=== PATIENT | female | born 1935 | race Caucasian/White ===

== ENCOUNTER 2017-03-30 10:28 | Emergency (ER) | payer OTHER ==
[~2017-03-30 10:28] MED LIST: ACET-1487 PO; ASPI81TA28 PO; HYDR-5688 PO; IMDSR60 PO; INSUINJ4 SC; LPT/20 PO; LSX40 PO; MAGN400T6 PO; MELA1CAP9 PO; NRV5 PO; PRT/40 PO; TPRSR25 PO
[2017-03-30] MEDS ORDERED: INSDGIPEN SC (11:25)
[2017-03-30] MEDS ORDERED: NRV/10 PO (11:25)
[2017-03-30] MEDS ORDERED: SERT-234 PO (11:26)
[2017-03-30] MEDS ORDERED: HYDR-4331 PO (11:26)
[2017-03-30] MEDS ORDERED: LACTATED RINGER'S 1000ML 1,000 ML IV SCH (11:31)
--- NOTE | 2017-03-30 11:38 | EMERGENCY ROOM VISIT NOTE ---
History Report prepared by Paulina: Johanny Trejo Under the Supervision of: Dr. Aubndio Mukherjee M.D. First contact with patient: 11:21 Chief Complaint: HIP PAIN Stated Complaint: FALL/HIP PAIN History of Present Illness The patient is an 81 year old female who presents to the Emergency Room with complaints of a sudden fall that occurred just prior to arrival. She currently rates her discomfort as a 5/10 in severity. The patient states that she was being transferred from her bed to her wheelchair when she fell, hitting the right side of her head and her right hip. She states that she has chronic right hip pain, noting that she has a bad hip. The patient states that her hip pain today is worsened due to the fall. She states that she takes 81 mg of aspirin daily. Per EMS the patient was given Fentanyl for her pain which alleviated her pain. The patient denies any headache, fever, neck pain, extremity pain, abdominal pain, back pain, vomiting, or urinary symptoms. She states that she does not ambulate, noting that she only transfers from bed to wheelchair. The patients tetanus is current. Source of History: patient Onset: prior to arrival Position: other (global) Symptom Intensity: 5/10 Quality: other (fall) Timing: other (sudden) Associated Symptoms: No fevers, No headache, No neck pain, No vomiting, No abdominal pain, No back pain, No urinary symptoms Note: Associated Symptoms: right hip pain Review of Systems See HPI for pertinent positives & negatives. A total of 10 systems reviewed and were otherwise negative. Past Medical & Surgical Medical Problems: (1) Acute GI bleeding (2) Benign hypertension (3) Cerebrovascular disease (4) Chronic kidney disease stage 3 (5) Coronary artery disease (6) CVA (cerebral vascular accident) (7) Depressive disorder (8) Diabetes mellitus type 2 (9) Diabetic foot ulcer (10) Dyslipidemia (11) Gastroesophageal reflux disease (12) Hypertension (13) Myocardial infarct (14) Osteoarthritis (15) Osteoporosis (16) Peripheral vascular disease Surgical Problems: (1) Coronary artery bypass grafting (2) History of appendectomy (3) Status post cholecystectomy (4) Tonsillectomy Family History Diabetes mellitus Heart disease Hypertension Social History Smoking Status: Never Smoker Alcohol Use: none Drug Use: none Marital Status: Housing Status: lives with family Occupation Status: unemployed Current/Historical Medications Scheduled Amlodipine Besylate (Amlodipine Besylate), 10 MG PO DAILY Aspirin (Aspirin Ec), 81 MG PO DAILY Atorvastatin (Atorvastatin Calcium), 20 MG PO HS Furosemide (Furosemide), 40 MG PO QAM Insulin Glargine (Lantus Solostar), 25 UNITS SC DAILY Isosorbide Mononitrate (Isosorbide Mononitrate ER), 60 MG PO QAM Magnesium Oxide (Mag-Ox), 400 MG PO BIDM Metoprolol Succinate (Metoprolol Succinate ER), 25 MG PO QAM Pantoprazole (Pantoprazole Sodium), 40 MG PO DAILY Sertraline (Zoloft), 100 MG PO DAILY Scheduled PRN Hydrocodone-Acetaminophen (Lortab 7.5-325 mg), 1 TAB PO Q6 PRN for Pain Melatonin (Melatonin), 10 MG PO HS PRN for Sleep Allergies Coded Allergies: Cephalexin (Verified Allergy, Intermediate, Hives, 04/27/16) Propofol (Verified Allergy, Mild, RASH, 04/27/16) Gabapentin (Verified Adverse Reaction, Intermediate, vertigo, 04/27/16) Levofloxacin (Verified Adverse Reaction, Mild, nausea, 04/27/16) Promethazine (Verified Adverse Reaction, Mild, CONFUSION, 04/27/16) TATIANNA Inhibitors (Verified Adverse Reaction, Unknown, Cough, 04/27/16) Physical Exam Vital Signs Date Time Temp Pulse Resp B/P (MAP) Pulse Ox O2 Delivery O2 Flow Rate FiO2 03/30/17 14:15 36.6 51 18 189/86 91 03/30/17 13:01 174/74 03/30/17 12:58 50 03/30/17 12:50 186/87 03/30/17 10:42 36.6 68 18 180/63 94 Room Air Physical Exam GENERAL: Patient is in no acute distress. HEENT: Abrasion to the right frontal parietal scalp, no mookie stepoff to suggest fracture, mucous membranes dry, no other facial trauma noted. NECK: No stridor, no adenopathy, no meningismus, trachea is midline. Nontender posterior c-spine. LUNGS: Clear to auscultation bilaterally, no wheeze, no rhonchi, breath sounds equal. HEART: Without murmurs gallops or rubs, regular rate and rhythm. ABDOMEN: Soft, nontender, bowel sounds positive, no hernias, no peritonitis. EXTREMITIES: Right lower extremity is externally rotated and shortened, there is pain to palpate the right lateral hip. No right knee effusion, no focal mookie discomfort around the knee. NEUROLOGIC: Oriented x 3, no acute motor or sensory deficits, no focal weakness. SKIN: No rash, no jaundice, no diaphoresis. Medical Decision & Procedures ER Provider Diagnostic Interpretation: Radiology results as stated below per my review and radiologist interpretation: CT OF THE HEAD WITHOUT CONTRAST CLINICAL HISTORY: Fall with head injury. COMPARISON STUDY: Head CT March 06, 2015 and MRI of the brain March 07, 2015. CT DOSE: 709.48 mGy.cm TECHNIQUE: Helical axial images of the head were obtained without IV contrast. Automated exposure control was utilized for the study. A dose lowering technique was utilized adhering to the principles of ALARA. FINDINGS: No acute intracranial hemorrhage, midline shift or mass effect is present. Ventricular system is stable. Basilar cisterns are patent. There are no extra-axial collections. An old right frontoparietal infarct is noted as well as an old left parietal infarct. White matter hypodensity suggests small vessel disease. There is an old infarct within the anterior left frontal lobe as well. There is no calvarial fracture. IMPRESSION: 1. No acute intracranial findings. 2. No calvarial fracture. 3. Multiple old infarcts, as described above. Electronically signed by: Pancho Brice M.D. 03/30/2017 12:37 PM Dictated Date/Time: 03/30/2017 12:28 PM R KNEE 1 OR 2 VIEWS ROUTINE CLINICAL HISTORY: Right knee pain following fall. COMPARISON: None FINDINGS: Alignment of the right knee is anatomic. There is no joint effusion or fracture. There are soft tissue calcifications which are chronic. Extensive vascular calcification is present. Osteopenia is noted. There is minimal lateral compartment joint space narrowing. Patellar spurring is noted. IMPRESSION: No acute fracture or joint effusion of the right knee. Electronically signed by: Pancho Brice M.D. 03/30/2017 1:17 PM Dictated Date/Time: 03/30/2017 1:01 PM R PELVIS/UNILATERAL HIP 2-3VIEWS CLINICAL HISTORY: 81 years-old Female presenting with pain, fall. TECHNIQUE: Single frontal view of the pelvis and frontal and frog-leg lateral views of the right hip were obtained. COMPARISON: 07/08/2013. FINDINGS: Significant interval worsening of severe degenerative changes of the right hip are reviewed deformation of the right humeral head now apparent. Complete joint space loss superiorly with subchondral sclerosis and cystic change both in the femoral head and in the acetabulum. The left hip is grossly normal. No evidence of acute hip fracture. Suggestion of periosteal reaction along the superior pubic rami, which may suggest prior injury. Osteopenia suggested area allowing for this, no gross evidence of pelvic fracture. Mild degenerative changes of the lower lumbar spine noted. Atherosclerosis. Multiple pelvic phleboliths. Mild stool burden. IMPRESSION: 1. No acute osseous injury of the pelvis or right hip. 2. Significant interval worsening of now severe degenerative changes of the right hip as described above. Electronically signed by: Dino Enriquez M.D. 03/30/2017 1:15 PM Dictated Date/Time: 03/30/2017 1:12 PM R FEMUR 2 VIEWS ROUTINE CLINICAL HISTORY: Fall. Right thigh pain. COMPARISON: CT of the abdomen and pelvis February 14, 2016 and right hip radiographs July 08, 2013. FINDINGS: No acute fracture within the right femur is identified. There is no right knee joint effusion. Note is made of near complete loss of the right hip joint space with osteophytosis and flattening of the femoral head. There is extensive vascular calcification. IMPRESSION: 1. No acute fracture of the right femur. 2. End-stage osteoarthritis of the right hip with flattening of the femoral head. Electronically signed by: Pancho Brice M.D. 03/30/2017 1:01 PM Dictated Date/Time: 03/30/2017 12:59 PM CHEST ONE VIEW PORTABLE CLINICAL HISTORY: 81 years-old Female presenting with hip pain. TECHNIQUE: Portable semiupright AP view of the chest was obtained. COMPARISON: 02/18/2016. FINDINGS: Image quality is degraded by suboptimal positioning. Median sternotomy wires intact. Cardiac silhouette top normal in size. Bibasilar hazy opacities may still be present. Allowing for patient body habitus and positioning, no gross evidence of new infiltrate. No large effusion or pneumothorax. Osseous structures within normal limits. No convincing evidence of pneumoperitoneum. The radiolucency over the upper abdomen is likely due to positioning. IMPRESSION: 1. Bibasilar atelectasis or scarring, unchanged. Degraded image quality. Electronically signed by: Dino Enriquez M.D. 03/30/2017 1:18 PM Dictated Date/Time: 03/30/2017 1:16 PM Laboratory Results 03/30/17 11:41 Red Blood Count 4.34, Mean Corpuscular Volume 87.1, Mean Corpuscular Hemoglobin 28.6, Mean Corpuscular Hemoglobin Concent 32.8, Mean Platelet Volume 10.5, Neutrophils (%) (Auto) 61.3, Lymphocytes (%) (Auto) 29.9, Monocytes (%) (Auto) 6.9, Eosinophils (%) (Auto) 1.1, Basophils (%) (Auto) 0.5, Neutrophils # (Auto) 6.63, Lymphocytes # (Auto) 3.23, Monocytes # (Auto) 0.74, Eosinophils # (Auto) 0.12, Basophils # (Auto) 0.05 03/30/17 11:41 Test 03/30/17 11:41 White Blood Count 10.80 K/uL (4.8-10.8) Red Blood Count 4.34 M/uL (4.2-5.4) Hemoglobin 12.4 g/dL (12.0-16.0) Hematocrit 37.8 % (37-47) Mean Corpuscular Volume 87.1 fL (80-100) Mean Corpuscular Hemoglobin 28.6 pg (25-34) Mean Corpuscular Hemoglobin Concent 32.8 g/dl (32-36) Platelet Count 231 K/uL (130-400) Mean Platelet Volume 10.5 fL (7.4-10.4) Neutrophils (%) (Auto) 61.3 % Lymphocytes (%) (Auto) 29.9 % Monocytes (%) (Auto) 6.9 % Eosinophils (%) (Auto) 1.1 % Basophils (%) (Auto) 0.5 % Neutrophils # (Auto) 6.63 K/uL (1.4-6.5) Lymphocytes # (Auto) 3.23 K/uL (1.2-3.4) Monocytes # (Auto) 0.74 K/uL (0.11-0.59) Eosinophils # (Auto) 0.12 K/uL (0-0.5) Basophils # (Auto) 0.05 K/uL (0-0.2) RDW Standard Deviation 45.0 fL (36.4-46.3) RDW Coefficient of Variation 14.1 % (11.5-14.5) Immature Granulocyte % (Auto) 0.3 % Immature Granulocyte # (Auto) 0.03 K/uL (0.00-0.02) Prothrombin Time 10.7 SECONDS (9.0-12.0) Prothromb Time International Ratio 1.0 (0.9-1.1) Activated Partial Thromboplast Time 26.6 SECONDS (21.0-31.0) Partial Thromboplastin Ratio 1.0 Anion Gap 9.0 mmol/L (3-11) Estimated GFR () 28.2 Estimated GFR (Non- 24.3 BUN/Creatinine Ratio 21.5 (10-20) Calcium Level 8.7 mg/dl (8.5-10.1) Laboratory results reviewed by me. Medications Administered Medications (Trade) Dose Ordered Sig/Frederick Route Start Time Stop Time Status Last Admin Dose Admin Lactated Ringer's 1,000 ml @ 150 mls/hr Q6H40M IV 03/30/17 11:31 04/29/17 11:30 03/30/17 11:31 150 MLS/HR Fentanyl Citrate (Fentanyl Inj) 50 mcg Q15M PRN IV 03/30/17 11:45 04/13/17 11:44 03/30/17 12:04 50 MCG ECG Indication: other (fall) Rate (beats per minute): 54 Rhythm: sinus bradycardia Findings: no acute ischemic change, no ectopy, other (T wave flattening inferior and lateral) ED Course 1126: The patient was evaluated in room C9. A complete history and physical exam was performed. 1131: Ordered Lactated Ringer's 1000 ml @ 150 mls/hr IV. 1145: Ordered Fentanyl Inj 50 mcg IV. 1330: I reevaluated the patient and she is doing well. I discussed the exam findings with her and her family and I discussed the treatment plan. They verbalized complete understanding and agreement. The patient is ready to go home. Medical Decision The patient is an 81 year old female who presents to the ED with complaints of a fall. Differential diagnoses considered include Intracranial bleeding or skull fracture, hip contusion or hip fracture, pelvic fracture, femur or knee fracture. There is no leukocytosis or anemia. No significant electrolyte abnormality. There was renal insufficiency but this appeared baseline looking back at previous testing. No coagulopathy. EKG shows a sinus rhythm, no acute ischemia. Brain CT shows no acute bleed or mass effect. Chest film does not show pneumonia or CHF. Pelvis and right hip films show no fractures. Arthritis was seen in the area of the right hip. The right femur and right knee films show no acute fractures. Patient received IV hydration, she received IV fentanyl for pain control. The patient has suffered some head trauma and a contusion to the right hip from her fall. She was reassured by her testing. She is being discharged home. Medication Reconcilliation Current Medication List: was personally reviewed by me Blood Pressure Screening Patient's blood pressure: Elevated blood pressure Blood pressure disposition: Referred to PCP Impression Primary Impression: Head trauma Additional Impressions: Fall Right hip pain Scribe Attestation The scribe's documentation has been prepared under my direction and personally reviewed by me in its entirety. I confirm that the note above accurately reflects all work, treatment, procedures, and medical decision making performed by me. Departure Information Dispostion Home / Self-Care Referrals Esther Hobson D.O. (PCP) Forms HOME CARE DOCUMENTATION FORM, IMPORTANT VISIT INFORMATION Patient Instructions [facility] Additional Instructions ice to the sore areas pain control as before at home no fractures today by our testing brain CT scan was ok today Problem Qualifiers
[2017-03-30] MEDS ORDERED: FENTANYL CITRATE INJ 50 MCG/1 ML 2 ML VIAL IV PRN (11:45)
[2017-03-30 12:01] LABS: BASO % 0.5 %; BASO ABS # 0.05 K/uL (0-0.2); COMPLETE YES; EOS % 1.1 %; HEMATOCRIT 37.8 % (37-47); IG% 0.3 %; LYMPH % 29.9 %; LYMPH ABS # 3.23 K/uL (1.2-3.4); MEAN CELL VOLUME 87.1 fL (80-100); MEAN CORPUSCULAR HEMOGLOBIN 28.6 pg (25-34); MEAN CORPUSCULAR HGB CONC 32.8 g/dl (32-36); MEAN PLATELET VOLUME 10.5 fL (7.4-10.4); MONO % 6.9 %; NEUT % 61.3 %; PLATELET COUNT 231 K/uL (130-400); RED BLOOD COUNT 4.34 M/uL (4.2-5.4)
[2017-03-30 12:09] LABS: PROTHROMBIN TIME (PATIENT) 10.7 SECONDS (9.0-12.0)
[2017-03-30 12:22] LABS: BLOOD UREA NITROGEN 41 mg/dl (7-18); BUN/CREATININE RATIO 21.5 (10-20); CALCIUM 8.7 mg/dl (8.5-10.1); CARBON DIOXIDE 23 mmol/L (21-32); CHLORIDE 111 mmol/L (98-107); GLUCOSE 194 mg/dl (70-99); SODIUM 143 mmol/L (136-145)
--- NOTE | 2017-03-30 12:39 | DIAGNOSTIC IMAGING REPORT ---
CT OF THE HEAD WITHOUT CONTRAST CLINICAL HISTORY: Fall with head injury. COMPARISON STUDY: Head CT March 06, 2015 and MRI of the brain March 07, 2015. CT DOSE: 709.48 mGy.cm TECHNIQUE: Helical axial images of the head were obtained without IV contrast. Automated exposure control was utilized for the study. A dose lowering technique was utilized adhering to the principles of ALARA. FINDINGS: No acute intracranial hemorrhage, midline shift or mass effect is present. Ventricular system is stable. Basilar cisterns are patent. There are no extra-axial collections. An old right frontoparietal infarct is noted as well as an old left parietal infarct. White matter hypodensity suggests small vessel disease. There is an old infarct within the anterior left frontal lobe as well. There is no calvarial fracture. IMPRESSION: 1. No acute intracranial findings. 2. No calvarial fracture. 3. Multiple old infarcts, as described above. Electronically signed by: Pancho Brice M.D. 03/30/2017 12:37 PM Dictated Date/Time: 03/30/2017 12:28 PM
--- NOTE | 2017-03-30 13:02 | DIAGNOSTIC IMAGING REPORT ---
R FEMUR 2 VIEWS ROUTINE CLINICAL HISTORY: Fall. Right thigh pain. COMPARISON: CT of the abdomen and pelvis February 14, 2016 and right hip radiographs July 08, 2013. FINDINGS: No acute fracture within the right femur is identified. There is no right knee joint effusion. Note is made of near complete loss of the right hip joint space with osteophytosis and flattening of the femoral head. There is extensive vascular calcification. IMPRESSION: 1. No acute fracture of the right femur. 2. End-stage osteoarthritis of the right hip with flattening of the femoral head. Electronically signed by: Pancho Brice M.D. 03/30/2017 1:01 PM Dictated Date/Time: 03/30/2017 12:59 PM
--- NOTE | 2017-03-30 13:17 | DIAGNOSTIC IMAGING REPORT ---
R PELVIS/UNILATERAL HIP 2-3VIEWS CLINICAL HISTORY: 81 years-old Female presenting with pain, fall. TECHNIQUE: Single frontal view of the pelvis and frontal and frog-leg lateral views of the right hip were obtained. COMPARISON: 07/08/2013. FINDINGS: Significant interval worsening of severe degenerative changes of the right hip are reviewed deformation of the right humeral head now apparent. Complete joint space loss superiorly with subchondral sclerosis and cystic change both in the femoral head and in the acetabulum. The left hip is grossly normal. No evidence of acute hip fracture. Suggestion of periosteal reaction along the superior pubic rami, which may suggest prior injury. Osteopenia suggested area allowing for this, no gross evidence of pelvic fracture. Mild degenerative changes of the lower lumbar spine noted. Atherosclerosis. Multiple pelvic phleboliths. Mild stool burden. IMPRESSION: 1. No acute osseous injury of the pelvis or right hip. 2. Significant interval worsening of now severe degenerative changes of the right hip as described above. Electronically signed by: Dino Enriquez M.D. 03/30/2017 1:15 PM Dictated Date/Time: 03/30/2017 1:12 PM
--- NOTE | 2017-03-30 13:19 | DIAGNOSTIC IMAGING REPORT ---
CHEST ONE VIEW PORTABLE CLINICAL HISTORY: 81 years-old Female presenting with hip pain. TECHNIQUE: Portable semiupright AP view of the chest was obtained. COMPARISON: 02/18/2016. FINDINGS: Image quality is degraded by suboptimal positioning. Median sternotomy wires intact. Cardiac silhouette top normal in size. Bibasilar hazy opacities may still be present. Allowing for patient body habitus and positioning, no gross evidence of new infiltrate. No large effusion or pneumothorax. Osseous structures within normal limits. No convincing evidence of pneumoperitoneum. The radiolucency over the upper abdomen is likely due to positioning. IMPRESSION: 1. Bibasilar atelectasis or scarring, unchanged. Degraded image quality. Electronically signed by: Dino Enriquez M.D. 03/30/2017 1:18 PM Dictated Date/Time: 03/30/2017 1:16 PM
--- NOTE | 2017-03-30 13:19 | DIAGNOSTIC IMAGING REPORT ---
R KNEE 1 OR 2 VIEWS ROUTINE CLINICAL HISTORY: Right knee pain following fall. COMPARISON: None FINDINGS: Alignment of the right knee is anatomic. There is no joint effusion or fracture. There are soft tissue calcifications which are chronic. Extensive vascular calcification is present. Osteopenia is noted. There is minimal lateral compartment joint space narrowing. Patellar spurring is noted. IMPRESSION: No acute fracture or joint effusion of the right knee. Electronically signed by: Pancho Brice M.D. 03/30/2017 1:17 PM Dictated Date/Time: 03/30/2017 1:01 PM
[2017-03-30 14:15] VITALS: BP 189/86; PULSE 51; TEMP 36.6; O2SAT 91
== END 2017-03-30 14:13 | disposition home or self-care (01) ==
LOC: EDBD 10:28 → C.EDC 10:32
DX: S09.90XA Unspecified injury of head, initial encounter (principal); W19.XXXA Unspecified fall, initial encounter; M25.551 Pain in right hip; I10 Essential (primary) hypertension; N18.3 Chronic kidney disease, stage 3 (moderate); I25.10 Atherosclerotic heart disease of native coronary artery without angina pectoris; F32.9 Major depressive disorder, single episode, unspecified; E11.9 Type 2 diabetes mellitus without complications; E78.5 Hyperlipidemia, unspecified; K21.9 Gastro-esophageal reflux disease without esophagitis; M19.90 Unspecified osteoarthritis, unspecified site; I73.9 Peripheral vascular disease, unspecified; I25.2 Old myocardial infarction; Z83.3 Family history of diabetes mellitus; Z82.49 Family history of ischemic heart disease and other diseases of the circulatory system; Z79.82 Long term (current) use of aspirin; Z79.4 Long term (current) use of insulin

== ENCOUNTER 2018-01-27 12:33 | Emergency (ER) | payer OTHER ==
[~2018-01-27] VITALS: Ht 162.6 cm; Wt 63.4 kg
[~2018-01-27 12:33] MED LIST changes: -ACET-1487 PO; +HYDR-4331 PO; -HYDR-5688 PO; +INSDGIPEN SC; -INSUINJ4 SC; -LPT/20 PO; +LPT20 PO; +NRV/10 PO; -NRV5 PO; +PANT40TA2 PO; -PRT/40 PO; +SERT-234 PO
[2018-01-27 12:39] VITALS: TEMP 37.4; Ht 162.6 cm; Wt 63.4 kg
[2018-01-27] MEDS ORDERED: HYDROCODONE/ACETAMIN 5/325MG TAB PO STA (12:44)
--- NOTE | 2018-01-27 13:28 | DIAGNOSTIC IMAGING REPORT ---
SINGLE VIEW PELVIS CLINICAL HISTORY: Left hip pain. Fall one month ago. FINDINGS: An AP pelvic radiograph is correlated with pelvic CT dated 02/14/2016 and with radiographs of both hips dated 07/08/2013. The skeletal structures are osteopenic. No acute or healing fracture is identified. There is advanced degenerative change involving the right hip with near complete loss of the joint space and deformity/flattening of the femoral head and deformity acetabulum. Moderate arthritic change and joint space narrowing is seen in the left hip. Mild sclerotic change is noted in the sacroiliac joints. Lumbosacral spondylosis is partially imaged. There is no evidence of bowel obstruction. Atherosclerotic calcification is seen in the femoral arteries. Phleboliths are observed in the pelvis. IMPRESSION: 1. Osteopenia with no radiographic evidence of acute or healing fracture involving the hips or bony pelvis. 2. Advanced chronic arthritic change and deformity is present in the right hip. This has progressed from the 2014 examination. Electronically signed by: Abundio Davidson M.D. 01/27/2018 1:26 PM Dictated Date/Time: 01/27/2018 1:23 PM
--- NOTE | 2018-01-27 14:01 | DIAGNOSTIC IMAGING REPORT ---
LUMBAR SPINE 5 VIEWS CLINICAL HISTORY: Low back pain. Fall one month ago. FINDINGS: Five views of the lumbar spine are correlated with abdominal CT dated 02/14/2016. The skeletal structures are osteopenic. There is no radiographic evidence of fracture or malalignment involving the lumbar spine. There is a mild chronic superior endplate compression deformity of L2. Vertebral body height is otherwise maintained throughout the lumbar spine. There is mild anterolisthesis at L4-L5. Alignment is otherwise preserved. Anterior osteophytes are seen throughout. The transverse and spinous processes appear intact. There is no evidence of spondylolysis. Mild lumbar levocurvature is centered at L2-L3. Moderate to advanced facet arthropathy is seen in the mid to lower lumbar region. There is moderate to advanced disc space narrowing seen from L3-L4 through L5-S1. Degenerative endplate sclerosis is noted at L2-L3. The visualized sacrum and bony pelvis appear intact. There is no bowel obstruction. Cholecystectomy clips are identified in the right upper quadrant. Phleboliths are observed in the pelvis. IMPRESSION: 1. There is no radiographic evidence of acute fracture or malalignment involving the lumbar spine. 2. A mild chronic superior endplate compression deformity of L2 is unchanged from 2016. 3. Osteopenia with spondylotic change and scoliosis as above. Dictated: 01/27/2018 1:26 PM Transcribed: 01/27/2018 2:00 PM [email or web address] Electronically signed by: Abundio Davidson M.D. 01/27/2018 2:02 PM Dictated Date/Time: 01/27/2018 1:26 PM
--- NOTE | 2018-01-27 14:44 | EMERGENCY ROOM VISIT NOTE ---
History First contact with patient: 12:37 Chief Complaint: HIP PAIN Stated Complaint: L HIP PAIN History of Present Illness The patient is a 82 year old female who presents to the Emergency Room via EMS with complaints of low back pain radiating into her left leg. Patient points to the left lower back as the area of pain and states that it radiates all the way down to her ankle. She states it is hard for her to go from a sitting position to a standing position. She states the pain has been there for over a month. She has been taking hydrocodone 7.5/325 mg every 6 hours for the pain but recently she has little pain control with this medication. She is followed by her family physician at [facility] for her hip pain. She states prior to the onset of the left low back pain and left leg pain she was having right hip pain. The patient denies any loss of bowel or bladder control. She does admit to increased urinary frequency but denies any dysuria or hematuria. The patient denies any recent falls. The patient states that she came by ambulance to the emergency room today because she lives with her daughter and her daughter was working. Review of Systems 10 system review was performed and was negative unless stated otherwise history of present illness. Past Medical/Surgical History Medical Problems: (1) Acute GI bleeding (2) Benign hypertension (3) Cerebrovascular disease (4) Chronic kidney disease stage 3 (5) Coronary artery disease (6) CVA (cerebral vascular accident) (7) Depressive disorder (8) Diabetes mellitus type 2 (9) Diabetic foot ulcer (10) Dyslipidemia (11) Gastroesophageal reflux disease (12) Hypertension (13) Myocardial infarct (14) Osteoarthritis (15) Osteoporosis (16) Peripheral vascular disease Surgical Problems: (1) Coronary artery bypass grafting (2) History of appendectomy (3) Status post cholecystectomy (4) Tonsillectomy Family History Diabetes mellitus Heart disease Hypertension Social History Smoking Status: Never Smoker Alcohol Use: none Drug Use: none Marital Status: Housing Status: lives with family Occupation Status: unemployed Current/Historical Medications Scheduled Aspirin (Aspirin Ec), 81 MG PO DAILY Atorvastatin (Lipitor), 20 MG PO HS Insulin Glargine (Lantus Solostar), 25 UNITS SC DAILY Isosorbide Mononitrate (Isosorbide Mononitrate ER), 60 MG PO QAM Magnesium Oxide (Mag-Ox), 400 MG PO BIDM Metoprolol Succinate (Metoprolol Succinate ER), 25 MG PO QAM Pantoprazole (Pantoprazole Sodium), 40 MG PO DAILY Sertraline (Zoloft), 100 MG PO DAILY Scheduled PRN Melatonin (Melatonin), 10 MG PO HS PRN for Sleep Physical Exam Vital Signs Date Time Temp Pulse Resp B/P (MAP) Pulse Ox O2 Delivery O2 Flow Rate FiO2 01/27/18 14:04 59 01/27/18 13:32 58 18 158/82 90 Room Air 01/27/18 12:39 37.4 62 18 169/120 94 Room Air Physical Exam GENERAL: 82-year-old white female appears in no acute distress. MENTAL Status: Alert and oriented 3. NECK: Supple, no lymphadenopathy noted. No carotid bruits noted. LUNGS: Clear auscultation without wheezes rales or rhonchi. CARDIAC: Regular rate and rhythm without murmur. Pulses is full and equal throughout. LUMBAR SPINE: No gross bony deformity noted. The patient is tender to palpation over the spinous processes and over the left paravertebral region. Range of motion was not assessed since the patient could not stand. Negative straight leg raise bilaterally. LEFT HIP: No gross bony deformity noted. The patient is nontender to palpation over the greater trochanter. The patient is full range of motion of the left hip. Medical Decision & Procedures ER Provider Diagnostic Interpretation: LUMBAR SPINE 5 VIEWS CLINICAL HISTORY: Low back pain. Fall one month ago. FINDINGS: Five views of the lumbar spine are correlated with abdominal CT dated 02/14/2016. The skeletal structures are osteopenic. There is no radiographic evidence of fracture or malalignment involving the lumbar spine. There is a mild chronic superior endplate compression deformity of L2. Vertebral body height is otherwise maintained throughout the lumbar spine. There is mild anterolisthesis at L4-L5. Alignment is otherwise preserved. Anterior osteophytes are seen throughout. The transverse and spinous processes appear intact. There is no evidence of spondylolysis. Mild lumbar levocurvature is centered at L2-L3. Moderate to advanced facet arthropathy is seen in the mid to lower lumbar region. There is moderate to advanced disc space narrowing seen from L3-L4 through L5-S1. Degenerative endplate sclerosis is noted at L2-L3. The visualized sacrum and bony pelvis appear intact. There is no bowel obstruction. Cholecystectomy clips are identified in the right upper quadrant. Phleboliths are observed in the pelvis. IMPRESSION: 1. There is no radiographic evidence of acute fracture or malalignment involving the lumbar spine. 2. A mild chronic superior endplate compression deformity of L2 is unchanged from 2016. 3. Osteopenia with spondylotic change and scoliosis as above. Dictated: 01/27/2018 1:26 PM Transcribed: 01/27/2018 2:00 PM [email or web address] Electronically signed by: Abundio Davidson M.D. 01/27/2018 2:02 PM SINGLE VIEW PELVIS CLINICAL HISTORY: Left hip pain. Fall one month ago. FINDINGS: An AP pelvic radiograph is correlated with pelvic CT dated 02/14/2016 and with radiographs of both hips dated 07/08/2013. The skeletal structures are osteopenic. No acute or healing fracture is identified. There is advanced degenerative change involving the right hip with near complete loss of the joint space and deformity/flattening of the femoral head and deformity acetabulum. Moderate arthritic change and joint space narrowing is seen in the left hip. Mild sclerotic change is noted in the sacroiliac joints. Lumbosacral spondylosis is partially imaged. There is no evidence of bowel obstruction. Atherosclerotic calcification is seen in the femoral arteries. Phleboliths are observed in the pelvis. IMPRESSION: 1. Osteopenia with no radiographic evidence of acute or healing fracture involving the hips or bony pelvis. 2. Advanced chronic arthritic change and deformity is present in the right hip. This has progressed from the 2014 examination. Electronically signed by: Abundio Davidson M.D. Medications Administered Medications (Trade) Dose Ordered Sig/[place] Route Start Time Stop Time Status Last Admin Dose Admin Acetaminophen/ Hydrocodone Bitart ([place] 5/325 Tab) 2 tab NOW STAT PO 01/27/18 12:44 01/27/18 12:47 DC 01/27/18 12:53 2 TAB ED Course The patient was evaluated. Patient's EMR medication list were reviewed. The patient informed me that she last took her hydrocodone/acetaminophen at 6 AM this morning. She was given hydrocodone 5/325 mg 2 tablets p.o. for pain. Urinalysis was ordered. The patient had to be catheterized for the urine. Urine dip was negative. Culture is pending. X-ray of the lumbar spine and pelvis was ordered interpreted by the radiologist as above with severe degenerative changes but no acute fractures. The patient was independently evaluated by Dr. Boyd who agrees with treatment plan. I discussed at length with the family members about possibly pursuing another housing option. regional production manager will also try to get the patient set up with some physical therapy. We will add additional Tylenol to the patient's hydrocodone/ acetaminophen 7.5/325 mg tablets. The patient was discharged home in stable condition with her family. Medical Decision The patient has severe arthritis of the right hip which I feel is affecting both her back and left leg as well. X-rays were obtained to rule out any fractures. She may benefit from some physical therapy or may have to consider different housing options. [place] Drug Monitoring Program Search Results: patient reviewed within database Medication Reconcilliation Current Medication List: was personally reviewed by me Blood Pressure Screening Patient's blood pressure: Elevated blood pressure Blood pressure disposition: Elevated BP felt to be situational Impression Primary Impression: Osteoarthritis Additional Impression: Low back pain Departure Information Dispostion Home / Self-Care Condition GOOD Referrals Esther Hobson D.O. (PCP) Forms HOME CARE DOCUMENTATION FORM, IMPORTANT VISIT INFORMATION, WORK / SCHOOL INSTRUCTIONS Patient Instructions My [facility] Additional Instructions Continue hydrocodone 7.5/325 mg every 6 hours. With each hydrocodone taken additional 325 mg of Tylenol. Also recommend a stool softener daily to prevent constipation from the narcotic use. Physical therapy as scheduled by case maker. Also recommend follow-up with your PCP in 2 days for recheck and further discussion about housing arrangements. If symptoms worsen, return to ER. Problem Qualifiers Primary Impression: Osteoarthritis Osteoarthritis location: multiple joints Osteoarthritis type: unspecified Qualified Codes: M15.9 - Polyosteoarthritis, unspecified Additional Impression: Low back pain Chronicity: chronic Back pain laterality: bilateral Sciatica presence: with sciatica Sciatica laterality: sciatica of left side Qualified Codes: M54.42 - Lumbago with sciatica, left side; G89.29 - Other chronic pain
[2018-01-27 15:01] VITALS: BP 120/86; PULSE 61; O2SAT 93
--- NOTE | 2018-01-27 15:15 | EMERGENCY ROOM VISIT NOTE ---
ED Visit Note First contact with patient: 12:37 Patient seen and evaluated in the emergency room after discussion with physician pizza hut assistant. Discussed with patient and family concerned given age, chronic mobility despite recent deterioration in ambulatory function, chronic use of narcotic pain medication in a woman of her age, potential risks and complications. Family was interested in potential physical therapy and asked case management to discuss with them and she will be able to be placed in rehab within the next 2 days. Family is comfortable taking her home in the interim and continuing to monitor. I do not suspect additional occult infectious etiology, occult septic arthritis, cauda equina or cord impingement, patient's description and location of symptoms more suggestive of sciatica or lumbar radiculopathy. No evidence of occult fracture and no other recent trauma.
--- NOTE | 2018-01-29 18:34 | Pharmacy Progress Note ---
ED Pharmacist Culture FollowUp Date of Service: Jan 29, 2018. Klebsiella pneumoniae isolated from urine culture. Called patient - daughter answered phone. Noted patient was admitted to [facility] today. Called [facility] , spoke w Gretel (retail center receptionist). RN taking care of patient was unavailable to give verbal report. Gretel provided a fax number of and noted her intent to give the faxed information to RN / provider immediately upon receipt of information. I faxed to that number, confirmation received. JobID: [id number] Management of culture result per [facility] discretion (which I also noted in the faxed information).
== END 2018-01-27 15:04 | disposition home or self-care (01) ==
LOC: EDBD 12:33 → C.EDC 12:34
DX: M54.42 Lumbago with sciatica, left side (principal); G89.29 Other chronic pain; M16.11 Unilateral primary osteoarthritis, right hip; E78.5 Hyperlipidemia, unspecified; E11.621 Type 2 diabetes mellitus with foot ulcer; E11.22 Type 2 diabetes mellitus with diabetic chronic kidney disease; N18.3 Chronic kidney disease, stage 3 (moderate); Z79.4 Long term (current) use of insulin; Z79.82 Long term (current) use of aspirin; I12.9 Hypertensive chronic kidney disease with stage 1 through stage 4 chronic kidney disease, or unspecified chronic kidney disease; K21.9 Gastro-esophageal reflux disease without esophagitis; F32.9 Major depressive disorder, single episode, unspecified

== ENCOUNTER → 2018-02-11 | Outpatient (CLI) | payer OTHER ==
[~2018-02-11] MED LIST changes: +HYDR-3983 PO; -HYDR-4331 PO; -LSX40 PO; -MAGN400T6 PO; -NRV/10 PO; +OXYSR/10
== END ==
LOC: C.LABSPEC 07:49
PROVIDERS: ATTEND Internal Medicine
DX: I10 Essential (primary) hypertension (principal); M81.0 Age-related osteoporosis without current pathological fracture; M19.90 Unspecified osteoarthritis, unspecified site

== ENCOUNTER → 2018-02-12 | Outpatient (CLI) | payer OTHER ==
[2018-02-12 08:38] LABS: BASO % 0.3 %; BASO ABS # 0.04 K/uL (0-0.2); EOS % 1.8 %; EOS ABS # 0.23 K/uL (0-0.5); HEMATOCRIT 37.5 % (37-47); IG# 0.03 K/uL (0.00-0.02); LYMPH % 30.2 %; LYMPH ABS # 3.92 K/uL (1.2-3.4); MEAN CELL VOLUME 90.1 fL (80-100); MEAN CORPUSCULAR HEMOGLOBIN 28.8 pg (25-34); MEAN PLATELET VOLUME 10.8 fL (7.4-10.4); MONO % 7.8 %; MONO ABS # 1.01 K/uL (0.11-0.59); NEUT % 59.7 %; NEUT ABS # 7.75 K/uL (1.4-6.5); PLATELET COUNT 252 K/uL (130-400); RED CELL DISTRIBUTION WIDTH CV 14.8 % (11.5-14.5); RED CELL DISTRIBUTION WIDTH SD 48.5 fL (36.4-46.3); WHITE BLOOD COUNT 12.98 K/uL (4.8-10.8)
[2018-02-12 08:55] LABS: ALBUMIN 3.2 gm/dl (3.4-5.0); ALKALINE PHOSPHATASE 61 U/L (45-117); ALT/SGPT 18 U/L (12-78); AST/SGOT 16 U/L (15-37); BLOOD UREA NITROGEN 42 mg/dl (7-18); CALCIUM 8.7 mg/dl (8.5-10.1); CARBON DIOXIDE 22 mmol/L (21-32); CHOLESTEROL 111 mg/dl (0-200); CREATININE 1.92 mg/dl (0.60-1.20); GLUCOSE 149 mg/dl (70-99); LDL CHOLESTEROL CALCULATED 35 mg/dl; SODIUM 140 mmol/L (136-145); TOTAL PROTEIN 7.1 gm/dl (6.4-8.2)
== END ==
LOC: C.LABCC 08:16
PROVIDERS: ATTEND Internal Medicine
DX: N18.3 Chronic kidney disease, stage 3 (moderate) (principal); E11.9 Type 2 diabetes mellitus without complications; I25.10 Atherosclerotic heart disease of native coronary artery without angina pectoris; I12.9 Hypertensive chronic kidney disease with stage 1 through stage 4 chronic kidney disease, or unspecified chronic kidney disease; D64.9 Anemia, unspecified; E78.5 Hyperlipidemia, unspecified; G45.9 Transient cerebral ischemic attack, unspecified

== ENCOUNTER → 2018-02-13 | Outpatient (CLI) | payer OTHER | END | disposition home or self-care (01) | LOC: C.RDSM 09:45 | PROVIDERS: ATTEND Orthopaedic Surgery | DX: R10.2 Pelvic and perineal pain (principal); M25.551 Pain in right hip ==

== ENCOUNTER 2018-06-22 18:38 | Inpatient (IN) ==
[2018-06-22] MEDS ORDERED: SODIUM CHLORIDE 0.9% 1000ML 1,000 ML IV SCH (19:15)
[2018-06-22] MEDS ORDERED: DEXTROSE 50% 50 ML SYRINGE IV ONE ×2 (19:18→22:06)
--- NOTE | 2018-06-22 19:39 | XRay Report ---
XR chest 1V portable HISTORY: weakness COMPARISON: Chest 03/30/2017. FINDINGS: There are postoperative changes. The heart is normal in size. Large hiatus hernia is again noted. Bibasilar interstitial thickening. Mild emphysema. IMPRESSION: 1. Bibasilar interstitial thickening, unchanged. This is likely chronic. 2. Emphysema. 3. Large hiatus hernia is again noted. Electronically signed by: Richard Wilson M.D. 06/22/2018 7:38 PM
--- NOTE | 2018-06-22 20:07 | CT Scan Report ---
CT head/brain wo con CLINICAL HISTORY: 82 years-old Female with ams. Acutely altered mental status TECHNIQUE: Multiple axial CT images of the head were obtained without contrast. A dose lowering tech nique was utilized adhering to the principles of ALARA. CT DOSE: 537.48 mGy.cm COMPARISON: CT head 03/30/2017. FINDINGS: No acute intracranial hemorrhage, midline shift, intracranial mass, hydrocephalus, territorial ischem ia or abnormal extra-axial collection. Moderate atrophy with advanced chronic microvascular ischemic changes. Encephalomalacia from remote infarction redemonstrated about the left frontal, bilateral fro ntal parietal and right temporal lobes. Unchanged remote lacunar infarction of the left thalamus. The calvarium is intact. Mild mucoperiosteal thickening of the right maxillary sinus. Mastoid air ce lls and middle ear cavities are clear. Soft tissues and orbits are unremarkable. Prior bilateral janet ract repair. IMPRESSION: 1. No acute intracranial abnormality. 2. Chronic changes as above. The above report was generated using voice recognition software. It may contain grammatical, syntax o r spelling errors. Electronically signed by: Baljinder Heard M.D. 06/22/2018 8:06 PM
[2018-06-22 20:15] LABS: Hematocrit (blood only) 35.1 % (37-47); Hemoglobin 11.8 g/dL (12.0-16.0); Mean Corpuscular Hgb Conc 33.6 g/dL (32-36); Mean Corpuscular Volume 87.1 fL (80-100); Mean Platelet Volume 10.2 fL (7.4-10.4); Platelet Count 234 K/uL (130-400); RDW Coefficient of Variation 13.3 % (11.5-14.5); RDW Standard Deviation 42.8 fL (36.4-46.3); Red Blood Count 4.03 M/uL (4.2-5.4); White Blood Count 9.14 K/uL (4.8-10.8)
[2018-06-22 20:18] LABS: Appearance Urine Cloudy (Clear); Bacteria Urine Automated 4+ (Negative); Bilirubin Urine Negative (Negative); Color Urine Yellow; Glucose Urine UA Negative (Negative); Ketones Urine Negative (Negative); Leukocyte Esterase Urine 2+ (Negative); Nitrite Urine Positive (Negative); Specific Gravity Urine 1.018 (1.000-1.030); Urobilinogen Urine Negative (Negative); WBC Urine Automated >30 /hpf (0-5); pH Urine >= 9.0 (4.5-7.5)
[2018-06-22 20:32] LABS: Protein Urine 1+ (Negative)
[2018-06-22 20:33] LABS: Albumin Level 2.7 gm/dl (3.4-5.0); BUN Creatinine Ratio 20.4 (10-20); Calcium 8.3 mg/dl (8.5-10.1); Creatinine Clr Calc Pharmacy 14.8 ml/min; Est GFR (African American) 19.5; Est GFR (Non-African American) 16.8; Magnesium 2.8 mg/dl (1.8-2.4)
[2018-06-22 20:35] LABS: Basophils # (auto) 0.02 K/uL (0-0.2); Basophils % (auto) 0.2 %; Echinocytes 1+; Eosinophils # (auto) 0.03 K/uL (0-0.5); Eosinophils % (auto) 0.3 %; Immature Granulocytes # (auto) 0.03 K/uL (0.00-0.02); Immature Granulocytes % (auto) 0.3 %; Lymphocytes # (auto) 1.58 K/uL (1.2-3.4); Lymphocytes % (auto) 17.3 %; Monocytes # (auto) 0.86 K/uL (0.11-0.59); Monocytes % (auto) 9.4 %; Neutrophils # (auto) 6.62 K/uL (1.4-6.5); Neutrophils % (auto) 72.5 %
[2018-06-22 20:38] LABS: Triple Phosphate Crystal Urine Present (None Prsent)
[2018-06-22 20:47] LABS: Albumin Globulin Ratio 0.6 (0.9-2); Bilirubin,Total 0.2 mg/dl (0.1-1); Globulin 4.4 gm/dl (2.5-4.0); Total Protein 7.1 gm/dl (6.4-8.2); Troponin I 0.055 ng/ml (0-0.045)
[2018-06-22] MEDS ORDERED: AZTREONAM 2,000 MG in DEXTROSE 5% 100 ML IV STA (21:14)
--- NOTE | 2018-06-22 21:42 | History & Physical Report ---
Date of Service June 22, 2018 Assessment & Plan (1) UTI (urinary tract infection): UA with 1+ protein, nitrite +, 2+ leuk, >30 WBC, 4+ bacteria, triple phosphate crystal -Trace UCx results -Empiric coverage with aztreonam (given previous abx hx and allergies) (2) Hypoglycemia: Unsure if related to current medication regimen versus current infection -Hold home regimen for now, alterations upon discharge as warranted -Long-acting insulin reduced, with hold parameters in place -BSG checks q4h -Hypoglycemia meds ordered PRN (3) Elevated troponin: Patient asymptomatic, high suspicion for demand mismatch ischemia rather than ACS -Monitor on telemetry -Check serial troponin q6h -EKG PRN chest pain (4) Dehydration: Elevated creatinine 2.56 on admission, up from baseline 1.9. Elevated BUN :creatinine ratio on admission. -IVF NSS @75cc/hr -Trend BMP (5) Weakness: Possibly contributor to by hypoglycemia versus dehydration versus deconditioning -Address issues as above -Will order PT/OT evals (6) DM type 2 causing CKD stage 3: -Hold home regimen for now, alterations upon discharge as warranted -Lantus reduced to 10U qAM, with hold parameters if BSG<110 -ISS with BSG checks q4h (7) H/O: GI bleed: Hemoglobin stable. -Continue home iron supplementation in addition to bowel regimen. -Trend CBC (8) Lumbosacral radiculopathy at L5: -Continue home Tylenol and oxycodone, in addition to bowel regimen. (9) Depression: -Continue sertraline (10) CAD (coronary artery disease): -Continue amlodipine, metoprolol, ISMN, atorvastatin (11) PVD (peripheral vascular disease): As above (12) H/O: stroke: As above (13) HLD (hyperlipidemia): As above (14) HTN (hypertension): As above (15) DVT prophylaxis: History of Present Illness Primary Care Provider: [facility] 82 yo F with pMHx of CAD s/p CABG, CVS, PVD, DMII, h/o GI bleed, HTN, HLD presented to the ED today after episode of chills, shakes, diaphoresis. Patient is a resident of [facility] and has been treated with Bactrim for pansensitive E. coli UTI diagnosed on 06/14/18. However for the 2 days, she has been feeling increasingly unwell. She describes feeling like she has the flu with significant fatigue and weakness in addition to chills and sweats. EMS was called when she had shakes for approximately 10 minutes today. EMS states that the patient was sweaty, shaking, and clenching upon their arrival. A BSG check at that time revealed sugar in the 40s, for which 1 amp of D50 was given. Patient denies headaches, vision changes, chest pain, shortness of breath. She does describe intermittent belly pain and nausea which started earlier today. She is incontinent of urine at baseline and wears adult diapers consistently. She denies changes in bowel movements. Her granddaughter notes that the patient has mentioned she has been having low blood sugars for the past 3 days. Patient is unaware of any recent diabetic medication changes that have been made. She admits to poor PO intake and poor hydration over the last few days due to feeling unwell. In the ED, patient was noted to continue to have low blood sugars on 2 separate occasions. Each time the patient was tremulous and diaphoretic. BSG improved with an amp of D50 each time. She was also given IVF NSS to improve hydration. UA shows evidence of infection, and the patient was started on aztreonam. Allergies Allergy/AdvReac Type Severity Reaction Status Date / Time cephalexin Allergy Intermediate Hives Verified 04/05/18 12:20 propofol Allergy Mild RASH Verified 04/05/18 12:20 gabapentin AdvReac Intermediate vertigo Verified 04/05/18 12:20 levofloxacin AdvReac Mild nausea Verified 04/05/18 12:20 promethazine AdvReac Mild CONFUSION Verified 04/05/18 12:20 TATIANNA Inhibitors AdvReac Unknown Cough Verified 04/05/18 12:20 Home Medications Home Medications Medication Instructions Recorded Confirmed Type acetaminophen 650 mg PO Q6H PRN 04/04/18 06/22/18 History amlodipine 7.5 mg PO DAILY 04/04/18 06/22/18 History ascorbic acid (vitamin C) [Vitamin 250 mg PO DAILY 04/04/18 06/22/18 History C] atorvastatin 20 mg PO QPM 04/04/18 06/22/18 History bisacodyl [Dulcolax (bisacodyl)] 10 mg SD DAILY PRN 04/04/18 06/22/18 History cholecalciferol (vitamin D3) 2,000 units PO DAILY 04/04/18 06/22/18 History docusate sodium 100 mg PO TID 04/04/18 06/22/18 History ferrous sulfate 325 mg PO DAILY 04/04/18 06/22/18 History isosorbide mononitrate 60 mg PO DAILY 04/04/18 06/22/18 History magnesium hydroxide 30 ml PO DAILY PRN 04/04/18 06/22/18 History oxycodone 5 mg PO QID 04/04/18 06/22/18 History pantoprazole 40 mg PO DAILY 04/04/18 06/22/18 History polyethylene glycol 3350 [Miralax] 17 g PO DAILY 04/04/18 06/22/18 History sertraline 100 mg PO QAM 04/04/18 06/22/18 History sodium phosphates [Fleet Enema] 118 ml SD DAILY PRN 04/04/18 06/22/18 History cholecalciferol (vitamin D3) 1,000 units PO DAILY 06/22/18 06/22/18 History [Vitamin D3] insulin aspart U-100 [Novolog 5 units SUBCUT BID 06/22/18 06/22/18 History U-100 Insulin aspart] insulin aspart U-100 [Novolog See Label Instructions .ROUTE 06/22/18 06/22/18 History U-100 Insulin aspart] .COMPLEX PRN insulin detemir U-100 [Levemir 25 units SUBCUT QAM 06/22/18 06/22/18 History U-100 Insulin] metoprolol tartrate 12.5 mg PO BID 06/22/18 06/22/18 History ondansetron HCl 8 mg PO Q6H PRN 06/22/18 06/22/18 History sennosides-docusate sodium 1 tab PO QPM 06/22/18 06/22/18 History [Senokot-S] Past Med/Surg History Medical History Depression Lumbosacral radiculopathy at L5 DM type 2 causing CKD stage 3 HTN (hypertension) HLD (hyperlipidemia) H/O: GI bleed H/O: stroke PVD (peripheral vascular disease) CAD (coronary artery disease) CAD (coronary artery disease) Chronic kidney disease (CKD), stage III (moderate) Depression Diabetes mellitus, type 2 Dyslipidemia GERD (gastroesophageal reflux disease) GI bleed Hypertension Myocardial Infarction Osteoarthritis Osteoporosis Peripheral vascular disease Spinal stenosis Stroke Surgical History S/P cholecystectomy S/P appendectomy S/P tonsillectomy S/P CABG (coronary artery bypass graft) History of appendectomy History of cholecystectomy History of coronary artery bypass graft History of tonsillectomy Family History Other Family history of diabetes mellitus Social History Current Living Situation: [place] Other Information That Helps Us Care for You: No Feels Safe at Home: Yes Safety Concerns: Feels Safe At This Time Smoking Status: Former smoker Do You Dip or Chew Tobacco: No Second Hand Exposure: No Tobacco Cessation Education Requested by Patient: No Hx Alcohol Use: No Hx Substance Use: No Beliefs That Will Affect Care: None Preferred Language: Brazilian Communication Ability: Effective Offset Plate Maker Required: No Review of Systems All systems reviewed & are unremarkable except as noted in HPI & below Physical Exam 2 Vital Signs (Past 24 Hours): Last Vital Signs Temp 36.7 C 06/22/18 20:54 Pulse 64 06/22/18 20:54 Resp 21 06/22/18 20:54 BP 129/91 06/22/18 20:54 Pulse Ox 93 06/22/18 20:54 Constitutional: WD/WN, vitals as above + acute distress (with sympoatic hypoglycemia) and + thin; no altered mental status Eyes: PERRL, conjunctivae normal, anicteric sclerae ENMT: external ear and nose normal, oropharynx normal Mouth: + oral mucosal abnormality (dry mucus membrane) Neck: trachea midline Respiratory: normal respiratory effort, lungs clear to auscultation no cough Auscultation: no crackles and no wheezes Cardiovascular: RRR, no murmur, no edema Heart Sounds: normal S1 and normal S2 Extremities: no calf tenderness and no edema Gastrointestinal (Abdomen): normal bowel sounds, soft, nontender, no hepatosplenomegaly Inspection/Auscultation: abdomen not distended Percussion/Palpation: no guarding Musculoskeletal: Head/Neck/Chest: normocephalic, head atraumatic and neck supple Extremities: extremities normal to inspection Skin: no rashes, warm and dry Diaphoretic during hypoglycemia Neurologic: normal touch/pain/proprioception, moves all extremities and + focal motor deficit Motor/Sensory: + tremor (with hypoglycemia) Tongue sticks out and to right - chronic per family Psychiatric: Orientation: + not alert and + not oriented x 3 (Oriented to person and place only) Speech: normal rate/rhythm/volume of speech Lymphatic: no cervical lymphadenopathy Results & Data Laboratory Results Laboratory Results - last 24 hr 06/22/18 06/22/18 06/22/18 18:46 20:00 20:00 WBC 9.14 RBC 4.03 L Hgb 11.8 L Hct 35.1 L MCV 87.1 MCH 29.3 MCHC 33.6 RDW Std Deviation 42.8 RDW Coeff of Abdulkadir 13.3 Plt Count 234 MPV 10.2 Immature Gran % (Auto) 0.3 Neut % (Auto) 72.5 Lymph % (Auto) 17.3 [place] % (Auto) 9.4 Eos % (Auto) 0.3 Baso % (Auto) 0.2 Immature Gran # (Auto) 0.03 H Neut # (Auto) 6.62 H Lymph # (Auto) 1.58 [place] # (Auto) 0.86 H Eos # (Auto) 0.03 Baso # (Auto) 0.02 Echinocytes 1+ Sodium 138 Potassium 4.0 Chloride 108 H Carbon Dioxide 21 Anion Gap 9.0 BUN 52 H Creatinine 2.56 H Est Cr Clr Drug Dosing 14.8 Est GFR ( Amer) 19.5 Est GFR (Non-Af Amer) 16.8 BUN/Creatinine Ratio 20.4 H Glucose 128 H POC Glucose 59 L* Calcium 8.3 L Magnesium 2.8 H Total Bilirubin 0.2 AST 22 ALT 24 Alkaline Phosphatase 38 L Total Creatine Kinase 77 Troponin I 0.055 H* Total Protein 7.1 Albumin 2.7 L Globulin 4.4 H Albumin/Globulin Ratio 0.6 L TSH 1.560 Urine Color Urine Appearance Urine pH Ur Specific [place] Urine Protein Urine Glucose (UA) Urine Ketones Urine Blood Urine Nitrite Urine Bilirubin Urine Urobilinogen Ur Leukocyte Esterase Urine WBC (Auto) Urine RBC (Auto) U Hyaline Cast (Auto) U Epithel Cells (Auto) Urine Bacteria (Auto) Triple Phos Crystals 06/22/18 06/22/18 06/22/18 20:05 20:52 21:58 WBC RBC Hgb Hct MCV MCH MCHC RDW Std Deviation RDW Coeff of Abdulkadir Plt Count MPV Immature Gran % (Auto) Neut % (Auto) Lymph % (Auto) [place] % (Auto) Eos % (Auto) Baso % (Auto) Immature Gran # (Auto) Neut # (Auto) Lymph # (Auto) [place] # (Auto) Eos # (Auto) Baso # (Auto) Echinocytes Sodium Potassium Chloride Carbon Dioxide Anion Gap BUN Creatinine Est Cr Clr Drug Dosing Est GFR ( Amer) Est GFR (Non-Af Amer) BUN/Creatinine Ratio Glucose POC Glucose 82 53 L* Calcium Magnesium Total Bilirubin AST ALT Alkaline Phosphatase Total Creatine Kinase Troponin I Total Protein Albumin Globulin Albumin/Globulin Ratio TSH Urine Color Yellow Urine Appearance Cloudy H Urine pH >= 9.0 H Ur Specific [place] 1.018 Urine Protein 1+ H Urine Glucose (UA) Negative Urine Ketones Negative Urine Blood Negative Urine Nitrite Positive H Urine Bilirubin Negative Urine Urobilinogen Negative Ur Leukocyte Esterase 2+ H Urine WBC (Auto) >30 H Urine RBC (Auto) 0-4 U Hyaline Cast (Auto) 1-5 U Epithel Cells (Auto) 10-20 H Urine Bacteria (Auto) 4+ H Triple Phos Crystals Present H 06/22/18 06/22/18 22:00 22:32 WBC RBC Hgb Hct MCV MCH MCHC RDW Std Deviation RDW Coeff of Abdulkadir Plt Count MPV Immature Gran % (Auto) Neut % (Auto) Lymph % (Auto) [place] % (Auto) Eos % (Auto) Baso % (Auto) Immature Gran # (Auto) Neut # (Auto) Lymph # (Auto) [place] # (Auto) Eos # (Auto) Baso # (Auto) Echinocytes Sodium Potassium Chloride Carbon Dioxide Anion Gap BUN Creatinine Est Cr Clr Drug Dosing Est GFR ( Amer) Est GFR (Non-Af Amer) BUN/Creatinine Ratio Glucose POC Glucose 59 L* 187 H Calcium Magnesium Total Bilirubin AST ALT Alkaline Phosphatase Total Creatine Kinase Troponin I Total Protein Albumin Globulin Albumin/Globulin Ratio TSH Urine Color Urine Appearance Urine pH Ur Specific [place] Urine Protein Urine Glucose (UA) Urine Ketones Urine Blood Urine Nitrite Urine Bilirubin Urine Urobilinogen Ur Leukocyte Esterase Urine WBC (Auto) Urine RBC (Auto) U Hyaline Cast (Auto) U Epithel Cells (Auto) Urine Bacteria (Auto) Triple Phos Crystals Diagnostic Findings CT head/brain wo con CLINICAL HISTORY: 82 years-old Female with ams. Acutely altered mental status TECHNIQUE: Multiple axial CT images of the head were obtained without contrast. A dose lowering technique was utilized adhering to the principles of ALARA. CT DOSE: 537.48 mGy.cm COMPARISON: CT head 03/30/2017. FINDINGS: No acute intracranial hemorrhage, midline shift, intracranial mass, hydrocephalus, territorial ischemia or abnormal extra-axial collection. Moderate atrophy with advanced chronic microvascular ischemic changes. Encephalomalacia from remote infarction redemonstrated about the left frontal, bilateral frontal parietal and right temporal lobes. Unchanged remote lacunar infarction of the left thalamus. The calvarium is intact. Mild mucoperiosteal thickening of the right maxillary sinus. Mastoid air cells and middle ear cavities are clear. Soft tissues and orbits are unremarkable. Prior bilateral cataract repair. IMPRESSION: 1. No acute intracranial abnormality. 2. Chronic changes as above. XR chest 1V portable HISTORY: weakness COMPARISON: Chest 03/30/2017. FINDINGS: There are postoperative changes. The heart is normal in size. Large hiatus hernia is again noted. Bibasilar interstitial thickening. Mild emphysema. IMPRESSION: 1. Bibasilar interstitial thickening, unchanged. This is likely chronic. 2. Emphysema. 3. Large hiatus hernia is again noted. Code Status & VTE Plan Code Status Full code VTE Prophylaxis Plan VTE Prophylaxis will be ordered: Yes Supervising Physician Co-Signing Physician Notes Attending addendum: I have physically seen this patient, have supervised the medical residents activities, and agree with the H&P unless as otherwise noted. Assessment and Plan: UTI/acute kidney injury on chronic kidney disease/dehydration-- Review of records with previous infections and in consideration of multiple antibiotic allergies or sensitivities, will place patient on aztreonam 1 g IV every 8 hours. Follow urine culture and sensitivities. Elevated troponin-- The patient will be admitted to telemetry for serial cardiac enzymes, serial EKG's, cardiac rhythm monitoring and a 2-D echocardiogram with Dopplers. Supply demand mismatch. Hypoglycemia-- Patient continued to take her long-acting insulin in spite of poor oral intake over the past 2 days. Reduce Levemir to one third dose, and hold if blood sugar is less than 150 in the a.m. Placed on Accu-Cheks before meals and at bedtime with NovoLog coverage per scale. Remainder of orders and notations as noted. Resident Activity Tracking Resident Involvement: Resident Care Provided Care Provided: [facility] Medicine _ (1) UTI (urinary tract infection) Encounter type: Hematuria presence: without hematuria Indwelling urinary catheter type: Urinary tract infection type: site unspecified Qualified Code( s): N39.0 - Urinary tract infection, site not specified
[2018-06-22] MEDS ORDERED: ALUMINUM/MAGNESIUM SUSP 30 ML UDC PO PRN (23:44)
[2018-06-22] MEDS ORDERED: NITROGLYCERIN SL 0.4 MG/TAB TAB SL PRN (23:44)
[2018-06-22] MEDS ORDERED: GLUCOSE 10 TABS/TUBE PO PRN (23:44)
[2018-06-22] MEDS ORDERED: BISACODYL 10 MG SUPP PR PRN (23:44)
[2018-06-22] MEDS ORDERED: GLUCOSE 40% GEL 15 GM TUBE PO PRN (23:44)
[2018-06-22] MEDS ORDERED: SOD PHOSPHATE/SOD BIPHOSPHATE ENEMA 132 ML BTL PR PRN (23:44)
[2018-06-22] MEDS ORDERED: DEXTROSE 50% 50 ML SYRINGE IV PRN (23:44)
[2018-06-22] MEDS ORDERED: CARBOHYDRATES FOR HYPOGLYCEMIA PO PRN (23:44)
[2018-06-22] MEDS ORDERED: MAGNESIUM HYDROXIDE SUSP 30 ML UDC PO PRN ×2 (23:44)
[2018-06-22] MEDS ORDERED: ONDANSETRON INJ 2 MG/ML 2 ML VIAL IV PRN (23:44)
[2018-06-22] MEDS ORDERED: GLUCAGON FOR INJ 1 MG VIAL SQ PRN (23:44)
[2018-06-22] MEDS ORDERED: AZTREONAM 1,000 MG in DEXTROSE 5% 100 ML IV SCH (23:44)
[2018-06-22] MEDS: SODIUM CHLORIDE 0.9% 1000ML 1,000 ML IV SCH (23:50)
--- NOTE | 2018-06-23 01:03 | Emergency Department Note ---
Entered by Iman Graf acting as a scribe for ED Provider Note CHIEF COMPLAINT: Seizure-like episode HISTORY OF PRESENT ILLNESS: The patient is a 82 year old female who presents to the Emergency Room with complaints of a now resolved seizure-like episode that occurred just prior to arrival. Per EMS, the patient's episode lasted intermittently for about 10 minutes. EMS states that the patient was sweaty, shaking, and clenching during this time. EMS states that the patient's blood sugar was low upon arrival. The patient's family states that the patient's blood sugar was in the 30s or 40s last night. The patient states that she currently has nausea. Per the patient's family, the patient has been vomiting all week. The patient's family states that the patient was recently diagnosed with an infection. The patient states that she has a cold. Pt denies LOC, headache, fevers, chills, diaphoresis, visual changes, neck pain , chest pain, breathing difficulties, abdominal pain, back pain, melena, hematochezia, urinary symptoms, numbness, weakness, lymphadenopathy, rash, or other complaints. REVIEW OF SYSTEMS: See HPI for pertinent positives and negatives. A total of ten systems were reviewed and were otherwise negative. PMHx/PSHx: Diabetes MT Hypertension SOCIAL HISTORY: Patient lives at home. PHYSICAL EXAM: GENERAL: Awake, alert, uncomfortable-appearing, in no distress. Dry mucous membranes. HENT: Normocephalic, atraumatic. Oropharynx unremarkable. EYES: Normal conjunctiva. Sclera non-icteric. NECK: Supple. No nuchal rigidity. FROM. No masses. RESPIRATORY: Clear to auscultation. No wheezes. No rales. Normal respiratory effort. CARDIAC: Normal rate. Normal rhythm. No murmurs. No rubs. Extremities warm and well perfused. Pulses equal. No JVD. GI: Soft, non-distended. No tenderness to palpation. No rebound or guarding. No masses. RECTAL: Deferred. MUSCULOSKELETAL: Atraumatic. Chest examination reveals no tenderness. The back is symmetrical on inspection without obvious abnormality. There is no CVA tenderness to palpation. No joint edema. LOWER EXTREMITIES: Calves are equal size bilaterally and non-tender. No edema. No discoloration. NEURO: Normal sensorium. No sensory or motor deficits noted. SKIN: No rash or jaundice noted. EMERGENCY DEPARTMENT COURSE: 1916: Past medical records reviewed. The patient was evaluated in room C5, and a complete history and physical examination were performed. The patient's records show that a logan-sensitive E. coli was identified in cultures on . The patient was given Bactrim for her UTI on night, one day prior to arrival. 2123: I checked on the patient and updated her on the results. She states that she is feeling better. 2133: I discussed the case with Dr. [facility] Hospitalist who will further evaluate the patient. MEDICAL DECISION MAKING: Nursing notes reviewed and agree them. Additional history obtained from family. The patient's history was concerning for hypoglycemia and altered mental status. Differential diagnosis: Etiologies such as infection, hypoglycemia, electrolyte abnormalities, cardiac sources, intracerebral event, toxicologic, neurologic, as well as others were entertained. Physical examination: As above. Patient had no focal findings. She had a benign abdomen. ER treatment provided: IV Lock Normal saline hydration IV aztreonam IV dextrose x2 On reassessment the patient felt better. Diagnostics interpretation by me: ECG: No acute ischemia The labs revealed an unremarkable CBC. Mild elevation of the patient's creatinine. Chemistry panel is concerning for dehydration. Urinalysis concerning for infection. Troponin elevated. Imaging studies: CT scan of chest x-ray did not reveal any acute findings. The patient has had recurrent hypoglycemia. She had what was reported like seizure activity. She did have hypoglycemia with this. She has not had any additional seizure-like activity after treatment of her hypoglycemia. The patient has a persistent UTI despite being on oral Bactrim. IV antibiotics will be necessary in the hospital. Consultation: A consultation was placed with the hospitalist. The case was discussed and diagnostics were reviewed. The patient was evaluated in the ER for further treatment. IMPRESSION: Hypoglycemia UTI Seizure-like episode PLAN: Admit Impression & Plan Hypoglycemia, UTI (urinary tract infection), Seizure-like activity Past Med/Surg History Medical History DM type 2 causing CKD stage 3 HTN (hypertension) HLD (hyperlipidemia) H/O: GI bleed H/O: stroke PVD (peripheral vascular disease) CAD (coronary artery disease) CAD (coronary artery disease) Chronic kidney disease (CKD), stage III (moderate) Depression Diabetes mellitus, type 2 Dyslipidemia GERD (gastroesophageal reflux disease) GI bleed Hypertension Myocardial Infarction Osteoarthritis Osteoporosis Peripheral vascular disease Spinal stenosis Stroke Surgical History S/P cholecystectomy S/P appendectomy S/P tonsillectomy S/P CABG (coronary artery bypass graft) History of appendectomy History of cholecystectomy History of coronary artery bypass graft History of tonsillectomy Family History Other Family history of diabetes mellitus Social History Current Living Situation: Senior Care Other Information That Helps Us Care for You: No Feels Safe at Home: Yes Safety Concerns: Feels Safe At This Time Smoking Status: Former smoker Do You Dip or Chew Tobacco: No Second Hand Exposure: No Tobacco Cessation Education Requested by Patient: No Hx Alcohol Use: No Hx Substance Use: No Beliefs That Will Affect Care: None Preferred Language: Azeri Communication Ability: Effective 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 Results & Data Vital Signs Vital Signs - 24 hr 06/22/18 18:48 06/22/18 19:06 06/22/18 20:54 Temperature 36.7 C 36.7 C Temperature Source Oral Oral Sepsis Recent Fever Within 48 Hours No Sepsis New/Unexplained Change in Mental Status No Sepsis Action Taken by Nursing No Action Required Pulse Rate 68 Pulse Rate [Apical] 64 Pulse Rhythm Regular Pulse Strength Normal Respiratory Rate 18 21 Respiratory Effort / Characteristics Non-Labored Non-Labored Respiratory Depth Normal Respiratory Pattern Regular Blood Pressure 152/115 H Blood Pressure [Right Arm] 129/91 Blood Pressure Mean 127 Blood Pressure Mean [Right Arm] 103 Blood Pressure Position Lying Blood Pressure Position [Right Arm] Pulse Oximetry 90 98 93 Oxygen Delivery Method Room Air Room Air Room Air 06/22/18 21:54 06/22/18 23:08 06/22/18 23:15 Temperature 36.5 C 36.6 C Temperature Source Oral Oral Sepsis Recent Fever Within 48 Hours Sepsis New/Unexplained Change in Mental Status Sepsis Action Taken by Nursing Pulse Rate 72 Pulse Rate [Apical] 64 58 L Pulse Rhythm Pulse Strength Respiratory Rate 16 20 20 Respiratory Effort / Characteristics Non-Labored Spontaneous Respiratory Depth Normal Respiratory Pattern Regular Blood Pressure 123/91 Blood Pressure [Right Arm] 157/70 H 163/84 H Blood Pressure Mean Blood Pressure Mean [Right Arm] 99 110 Blood Pressure Position Blood Pressure Position [Right Arm] Lying Pulse Oximetry 93 98 97 Oxygen Delivery Method Room Air Room Air Room Air Home Medications Current Medication List: was personally reviewed by me Laboratory Data Attestation: I reviewed the patient's lab results. Result diagrams: 06/22/18 20:00 12/28/18 20:00 Lab Results 06/22/18 06/22/18 06/22/18 Range/Units 18:46 20:00 20:00 WBC 9.14 (4.8-10.8) K/uL RBC 4.03 L (4.2-5.4) M/uL Hgb 11.8 L (12.0-16.0) g/dL Hct 35.1 L (37-47) % MCV 87.1 (80-100) fL MCH 29.3 (25-34) pg MCHC 33.6 (32-36) g/dL RDW Std Deviation 42.8 (36.4-46.3) fL RDW Coeff of Abdulkadir 13.3 (11.5-14.5) % Plt Count 234 (130-400) K/uL MPV 10.2 (7.4-10.4) fL Immature Gran % (Auto) 0.3 % Neut % (Auto) 72.5 % Lymph % (Auto) 17.3 % [place] % (Auto) 9.4 % Eos % (Auto) 0.3 % Baso % (Auto) 0.2 % Immature Gran # (Auto) 0.03 H (0.00-0.02) K/uL Neut # (Auto) 6.62 H (1.4-6.5) K/uL Lymph # (Auto) 1.58 (1.2-3.4) K/uL [place] # (Auto) 0.86 H (0.11-0.59) K/uL Eos # (Auto) 0.03 (0-0.5) K/uL Baso # (Auto) 0.02 (0-0.2) K/uL Echinocytes 1+ Sodium 138 (136-145) mmol/L Potassium 4.0 (3.5-5.1) mmol/L Chloride 108 H (98-107) mmol/L Carbon Dioxide 21 (21-32) mmol/L Anion Gap 9.0 (3-11) BUN 52 H (7-18) mg/dl Creatinine 2.56 H (0.6-1.2) mg/dl Est Cr Clr Drug Dosing 14.8 ml/min Est GFR ( Amer) 19.5 Est GFR (Non-Af Amer) 16.8 BUN/Creatinine Ratio 20.4 H (10-20) Glucose 128 H (70-99) mg/dl POC Glucose 59 L* (70-99) Calcium 8.3 L (8.5-10.1) mg/dl Magnesium 2.8 H (1.8-2.4) mg/dl Total Bilirubin 0.2 (0.1-1) mg/dl AST 22 (15-37) U/L ALT 24 (12-78) U/L Alkaline Phosphatase 38 L (45-117) U/L Total Creatine Kinase 77 (26-192) U/L Troponin I 0.055 H* (0-0.045) ng/ml Total Protein 7.1 (6.4-8.2) gm/dl Albumin 2.7 L (3.4-5.0) gm/dl Globulin 4.4 H (2.5-4.0) gm/dl Albumin/Globulin Ratio 0.6 L (0.9-2) TSH 1.560 (0.300-4.500) uIu/ml Urine Color Urine Appearance (Clear) Urine pH (4.5-7.5) Ur Specific [place] (1.000-1.030) Urine Protein (Negative) Urine Glucose (UA) (Negative) Urine Ketones (Negative) Urine Blood (Negative) Urine Nitrite (Negative) Urine Bilirubin (Negative) Urine Urobilinogen (Negative) Ur Leukocyte Esterase (Negative) Urine WBC (Auto) (0-5) /hpf Urine RBC (Auto) (0-4) /hpf U Hyaline Cast (Auto) (0-5) /lpf U Epithel Cells (Auto) (0-5) /lpf Urine Bacteria (Auto) (Negative) Triple Phos Crystals (None Prsent) 06/22/18 06/22/18 06/22/18 Range/Units 20:05 20:52 21:58 WBC (4.8-10.8) K/uL RBC (4.2-5.4) M/uL Hgb (12.0-16.0) g/dL Hct (37-47) % MCV (80-100) fL MCH (25-34) pg MCHC (32-36) g/dL RDW Std Deviation (36.4-46.3) fL RDW Coeff of Abdulkadir (11.5-14.5) % Plt Count (130-400) K/uL MPV (7.4-10.4) fL Immature Gran % (Auto) % Neut % (Auto) % Lymph % (Auto) % [place] % (Auto) % Eos % (Auto) % Baso % (Auto) % Immature Gran # (Auto) (0.00-0.02) K/uL Neut # (Auto) (1.4-6.5) K/uL Lymph # (Auto) (1.2-3.4) K/uL [place] # (Auto) (0.11-0.59) K/uL Eos # (Auto) (0-0.5) K/uL Baso # (Auto) (0-0.2) K/uL Echinocytes Sodium (136-145) mmol/L Potassium (3.5-5.1) mmol/L Chloride (98-107) mmol/L Carbon Dioxide (21-32) mmol/L Anion Gap (3-11) BUN (7-18) mg/dl Creatinine (0.6-1.2) mg/dl Est Cr Clr Drug Dosing ml/min Est GFR ( Amer) Est GFR (Non-Af Amer) BUN/Creatinine Ratio (10-20) Glucose (70-99) mg/dl POC Glucose 82 53 L* (70-99) Calcium (8.5-10.1) mg/dl Magnesium (1.8-2.4) mg/dl Total Bilirubin (0.1-1) mg/dl AST (15-37) U/L ALT (12-78) U/L Alkaline Phosphatase (45-117) U/L Total Creatine Kinase (26-192) U/L Troponin I (0-0.045) ng/ml Total Protein (6.4-8.2) gm/dl Albumin (3.4-5.0) gm/dl Globulin (2.5-4.0) gm/dl Albumin/Globulin Ratio (0.9-2) TSH (0.300-4.500) uIu/ml Urine Color Yellow Urine Appearance Cloudy H (Clear) Urine pH >= 9.0 H (4.5-7.5) Ur Specific [place] 1.018 (1.000-1.030) Urine Protein 1+ H (Negative) Urine Glucose (UA) Negative (Negative) Urine Ketones Negative (Negative) Urine Blood Negative (Negative) Urine Nitrite Positive H (Negative) Urine Bilirubin Negative (Negative) Urine Urobilinogen Negative (Negative) Ur Leukocyte Esterase 2+ H (Negative) Urine WBC (Auto) >30 H (0-5) /hpf Urine RBC (Auto) 0-4 (0-4) /hpf U Hyaline Cast (Auto) 1-5 (0-5) /lpf U Epithel Cells (Auto) 10-20 H (0-5) /lpf Urine Bacteria (Auto) 4+ H (Negative) Triple Phos Crystals Present H (None Prsent) 06/22/18 06/22/18 Range/Units 22:00 22:32 WBC (4.8-10.8) K/uL RBC (4.2-5.4) M/uL Hgb (12.0-16.0) g/dL Hct (37-47) % MCV (80-100) fL MCH (25-34) pg MCHC (32-36) g/dL RDW Std Deviation (36.4-46.3) fL RDW Coeff of Abdulkadir (11.5-14.5) % Plt Count (130-400) K/uL MPV (7.4-10.4) fL Immature Gran % (Auto) % Neut % (Auto) % Lymph % (Auto) % [place] % (Auto) % Eos % (Auto) % Baso % (Auto) % Immature Gran # (Auto) (0.00-0.02) K/uL Neut # (Auto) (1.4-6.5) K/uL Lymph # (Auto) (1.2-3.4) K/uL [place] # (Auto) (0.11-0.59) K/uL Eos # (Auto) (0-0.5) K/uL Baso # (Auto) (0-0.2) K/uL Echinocytes Sodium (136-145) mmol/L Potassium (3.5-5.1) mmol/L Chloride (98-107) mmol/L Carbon Dioxide (21-32) mmol/L Anion Gap (3-11) BUN (7-18) mg/dl Creatinine (0.6-1.2) mg/dl Est Cr Clr Drug Dosing ml/min Est GFR ( Amer) Est GFR (Non-Af Amer) BUN/Creatinine Ratio (10-20) Glucose (70-99) mg/dl POC Glucose 59 L* 187 H (70-99) Calcium (8.5-10.1) mg/dl Magnesium (1.8-2.4) mg/dl Total Bilirubin (0.1-1) mg/dl AST (15-37) U/L ALT (12-78) U/L Alkaline Phosphatase (45-117) U/L Total Creatine Kinase (26-192) U/L Troponin I (0-0.045) ng/ml Total Protein (6.4-8.2) gm/dl Albumin (3.4-5.0) gm/dl Globulin (2.5-4.0) gm/dl Albumin/Globulin Ratio (0.9-2) TSH (0.300-4.500) uIu/ml Urine Color Urine Appearance (Clear) Urine pH (4.5-7.5) Ur Specific [place] (1.000-1.030) Urine Protein (Negative) Urine Glucose (UA) (Negative) Urine Ketones (Negative) Urine Blood (Negative) Urine Nitrite (Negative) Urine Bilirubin (Negative) Urine Urobilinogen (Negative) Ur Leukocyte Esterase (Negative) Urine WBC (Auto) (0-5) /hpf Urine RBC (Auto) (0-4) /hpf U Hyaline Cast (Auto) (0-5) /lpf U Epithel Cells (Auto) (0-5) /lpf Urine Bacteria (Auto) (Negative) Triple Phos Crystals (None Prsent) Administered Medications Aztreonam 1,000 mg/ Dextrose 105 mls @ 100 mls/hr IV Q8H [facility] Stop: 07/02/18 23:43 Last Infusion: 06/23/18 00:15 Dose: 100 mls/hr Admin: 06/22/18 23:49 Dose: 100 mls/hr Sodium Chloride (Nss 1000ml) 1,000 mls @ 75 mls/hr IV .[id number] [facility] Stop: 07/22/18 23:43 Last Admin: 06/22/18 23:50 Dose: 75 mls/hr Discontinued Medications Dextrose (Dextrose 50%) 25 ml IV NOW ONE Stop: 06/22/18 19:19 Last Admin: 06/22/18 19:21 Dose: 25 ml Dextrose (Dextrose 50%) 25 ml IV NOW ONE Stop: 06/22/18 22:07 Last Admin: 06/22/18 22:06 Dose: 25 ml Sodium Chloride (Nss 1000ml) 1,000 mls @ 125 mls/hr IV .Q8H [facility] Stop: 06/23/18 03:14 Last Infusion: 06/22/18 23:53 Dose: 125 mls/hr Admin: 06/22/18 19:14 Dose: 125 mls/hr Aztreonam 2,000 mg/ Dextrose 120 mls @ 100 mls/hr IV NOW STA Stop: 06/22/18 22:19 Last Infusion: 06/23/18 00:17 Dose: 0 mls/hr Admin: 06/22/18 22:40 Dose: 100 mls/hr Imaging Data Radiologist's Impression: Radiology results as stated below per my review and the radiologist's interpretation: XR chest 1V portable HISTORY: weakness COMPARISON: Chest 03/30/2017. FINDINGS: There are postoperative changes. The heart is normal in size. Large hiatus hernia is again noted. Bibasilar interstitial thickening. Mild emphysema. IMPRESSION: 1. Bibasilar interstitial thickening, unchanged. This is likely chronic. 2. Emphysema. 3. Large hiatus hernia is again noted. Electronically signed by: Richard Wilson M.D. 06/22/2018 7:[address] head/brain wo con CLINICAL HISTORY: 82 years-old Female with ams. Acutely altered mental status TECHNIQUE: Multiple axial CT images of the head were obtained without contrast. A dose lowering technique was utilized adhering to the principles of ALARA. CT DOSE: 537.48 mGy.cm COMPARISON: CT head 03/30/2017. FINDINGS: No acute intracranial hemorrhage, midline shift, intracranial mass, hydrocephalus, territorial ischemia or abnormal extra-axial collection. Moderate atrophy with advanced chronic microvascular ischemic changes. Encephalomalacia from remote infarction redemonstrated about the left frontal, bilateral frontal parietal and right temporal lobes. Unchanged remote lacunar infarction of the left thalamus. The calvarium is intact. Mild mucoperiosteal thickening of the right maxillary sinus. Mastoid air cells and middle ear cavities are clear. Soft tissues and orbits are unremarkable. Prior bilateral cataract repair. IMPRESSION: 1. No acute intracranial abnormality. 2. Chronic changes as above. The above report was generated using voice recognition software. It may contain grammatical, syntax or spelling errors. Electronically signed by: Baljinder Heard M.D. 06/22/2018 8:06 PM ECG Data Attestation: I personally reviewed and interpreted this ECG as follows: Indication: altered mental status Rate (beats per minute): 57 Rhythm: sinus bradycardia Findings: + LBBB; no PAC and no PVC Blood Pressure Blood Pressure Findings: Normal blood pressure Discharge Plan Visit Data *Final* Discharge Date/Time: 06/22/18 23:08 Chief Complaint: Hypoglycemia Stated Complaint: SEIZURE, HYPOGLYCEMIA ED Provider: Casey Hu Discharge Problem: Hypoglycemia, UTI (urinary tract infection), Seizure-like activity Patient Disposition: Admitted As Inpatient Discharge Instructions Interventions: ED Discharge Assessment Last Done: 06/22/18 23:08 The scribe's documentation has been prepared under my direction and personally reviewed by me in its entirety. I confirm that the note above accurately reflects all work, treatment, procedures, and medical decision making performed by me.
[2018-06-23] MEDS ORDERED: AZTREONAM CONSULT ACTIVE PRN (01:42)
[2018-06-23] MEDS: ACETAMINOPHEN 325 MG TAB PO PRN (03:19)
[2018-06-23 04:15] LABS: Basophils # (auto) 0.01 K/uL (0-0.2); Basophils % (auto) 0.1 %; Eosinophils # (auto) 0.13 K/uL (0-0.5); Eosinophils % (auto) 1.5 %; Hematocrit (blood only) 33.4 % (37-47); Immature Granulocytes # (auto) 0.03 K/uL (0.00-0.02); Immature Granulocytes % (auto) 0.3 %; Lymphocytes # (auto) 3.18 K/uL (1.2-3.4); Lymphocytes % (auto) 36.3 %; Mean Corpuscular Hgb Conc 32.9 g/dL (32-36); Mean Platelet Volume 10.2 fL (7.4-10.4); Monocytes # (auto) 1.13 K/uL (0.11-0.59); Monocytes % (auto) 12.9 %; Neutrophils # (auto) 4.27 K/uL (1.4-6.5); Neutrophils % (auto) 48.9 %; Platelet Count 218 K/uL (130-400); RDW Coefficient of Variation 13.5 % (11.5-14.5); Red Blood Count 3.84 M/uL (4.2-5.4); White Blood Count 8.75 K/uL (4.8-10.8)
[2018-06-23 04:31] LABS: Calcium 7.8 mg/dl (8.5-10.1); Creatinine Clr Calc Pharmacy 14.8 ml/min; Est GFR (African American) 22.1; Est GFR (Non-African American) 19.1; Potassium 4.5 mmol/L (3.5-5.1)
[2018-06-23 04:37] LABS: Troponin I 0.09 ng/ml (0-0.045)
[2018-06-23 06:53] LABS: Estimated Average Glucose 143 mg/dl
[2018-06-23] MEDS: PANTOprazole 40 MG TAB PO SCH (07:44)
[2018-06-23] MEDS: METOPROLOL TARTRATE 25 MG TAB PO SCH ×3 (07:45→20:57)
[2018-06-23] MEDS: DOCUSATE SODIUM 100 MG CAP PO SCH ×3 (07:45→20:56)
[2018-06-23] MEDS: SERTRALINE HCL 100 MG TABLET PO SCH (07:45)
[2018-06-23] MEDS: ISOSORBIDE MONO EXTENDED REL 60 MG TABCR PO SCH (07:47)
[2018-06-23] MEDS: FERROUS SULFATE 325 MG TAB PO SCH (07:48)
[2018-06-23] MEDS: AMLODIPINE BESYLATE 5 MG TAB PO SCH (07:48)
[2018-06-23] MEDS: POLYETHYLENE (MIRALAX) 17 GM PACK PO SCH (07:50)
[2018-06-23] MEDS ORDERED: AZTREONAM 1,000 MG in DEXTROSE 5% 100 ML IV SCH (08:00)
[2018-06-23] MEDS: INSULIN ASPART 100 UNITS/ML 3 ML PEN SC SCH ×4 (08:11→21:00)
[2018-06-23] MEDS: INSULIN GLARGINE SOLOSTAR 100 UNITS/ML 3 ML PEN SC SCH (08:16)
[2018-06-23] MEDS: OXYCODONE HCL IR 5 MG TAB (IMMEDIATE RELEASE) PO SCH ×4 (08:50→21:03)
--- NOTE | 2018-06-23 10:53 | Hospitalist Progress Note ---
Date of Service June 23, 2018 Assessment & Plan (1) UTI (urinary tract infection): UA with 1+ protein, nitrite +, 2+ leuk, >30 WBC, 4+ bacteria, triple phosphate crystal outpatient urine culture with logan-sensitive E coli but she was not doing well on Bactrim perhaps Bactrim was causing her weakness, dehydration continue Aztreonam IV follow up repeat urine culture WBC normal, no fever transfer to medical floor (2) Hypoglycemia: Unsure if related to current medication regimen versus current infection -Long-acting insulin reduced, with hold parameters in place -BSG checks q4h -Hypoglycemia meds ordered PRN could be related to poor oral intake, will watch closely (3) Elevated troponin: Patient asymptomatic, this represents demand mismatch ischemia rather than ACS no chest pain troponin all < 0.1 will transfer to medical floor (4) MATTHEW (acute kidney injury): Cr up to 2.5 on admission, down to 2.3 today baseline is 1.9, repeat BMP tomorrow continue fluids at 75cc/hr (5) Dehydration: MATTHEW on CKD stage III Elevated creatinine 2.56 on admission, up from baseline 1.9. Elevated BUN: creatinine ratio on admission. -IVF NSS @75cc/hr - Cr down to 2.3, continue to monitor, repeat tomorrow (6) Weakness: Possibly contributor to by hypoglycemia versus dehydration versus deconditioning -Address issues as above -PT/OT pending (7) DM type 2 causing CKD stage 3: -Hold home regimen for now, alterations upon discharge as warranted -Lantus reduced to 10U qAM, with hold parameters if BSG<110 -ISS with BSG checks q4h (8) H/O: GI bleed: Hemoglobin stable. -Continue home iron supplementation in addition to bowel regimen. -Trend CBC (9) Lumbosacral radiculopathy at L5: -Continue home Tylenol and oxycodone, in addition to bowel regimen. (10) Depression: -Continue sertraline (11) CAD (coronary artery disease): -Continue amlodipine, metoprolol, ISMN, atorvastatin (12) PVD (peripheral vascular disease): As above (13) H/O: stroke: As above (14) HLD (hyperlipidemia): As above (15) HTN (hypertension): As above (16) DVT prophylaxis: Subjective patient feeling a little better this morning, more energy tried to eat breakfast but little appetite and then she felt nauseated, no vomiting reviewed labs, WBC normal, Cr down slightly to 2.3 from 2.5 no fever, vitals stable, no events on the monitor will transfer to medical floor PT/OT pending Review of Systems All systems reviewed & are unremarkable except as noted in HPI & below Constitutional: + fatigue and + weakness Gastrointestinal: + nausea and + problem reported (poor appetite) Physical Exam 2 Vital Signs (Past 24 Hours): Last Vital Signs Temp 36.8 C 06/23/18 07:09 Pulse 53 L 06/23/18 07:09 Resp 19 06/23/18 07:09 BP 165/61 H 06/23/18 07:09 Pulse Ox 92 06/23/18 07:09 Constitutional: WD/WN, vitals as above Eyes: PERRL, conjunctivae normal, anicteric sclerae ENMT: external ear and nose normal, oropharynx normal Neck: trachea midline, no thyromegaly Respiratory: normal respiratory effort, lungs clear to auscultation Cardiovascular: RRR, no murmur, no edema Gastrointestinal (Abdomen): normal bowel sounds, soft, nontender, no hepatosplenomegaly Musculoskeletal: Head/Neck/Chest: normocephalic, head atraumatic and neck supple Extremities: + abnormal strength (generalized weakness) Skin: no rashes, warm and dry Neurologic: patellar DTR's 2+ bilat, sensation intact and PERRL, EOMI, accommodation nl, no face palsy, no dysarthria Psychiatric: A+Ox3, euthymic affect Lymphatic: no cervical or axillary lymphadenopathy Results & Data Laboratory Results Laboratory Results - last 24 hr 06/22/18 06/22/18 06/22/18 18:46 20:00 20:00 WBC 9.14 RBC 4.03 L Hgb 11.8 L Hct 35.1 L MCV 87.1 MCH 29.3 MCHC 33.6 RDW Std Deviation 42.8 RDW Coeff of Abdulkadir 13.3 Plt Count 234 MPV 10.2 Immature Gran % (Auto) 0.3 Neut % (Auto) 72.5 Lymph % (Auto) 17.3 [place] % (Auto) 9.4 Eos % (Auto) 0.3 Baso % (Auto) 0.2 Immature Gran # (Auto) 0.03 H Neut # (Auto) 6.62 H Lymph # (Auto) 1.58 [place] # (Auto) 0.86 H Eos # (Auto) 0.03 Baso # (Auto) 0.02 Echinocytes 1+ Sodium 138 Potassium 4.0 Chloride 108 H Carbon Dioxide 21 Anion Gap 9.0 BUN 52 H Creatinine 2.56 H Est Cr Clr Drug Dosing 14.8 Est GFR ( Amer) 19.5 Est GFR (Non-Af Amer) 16.8 BUN/Creatinine Ratio 20.4 H Glucose 128 H POC Glucose 59 L* Estimat Average Glucose Hemoglobin A1c Calcium 8.3 L Magnesium 2.8 H Total Bilirubin 0.2 AST 22 ALT 24 Alkaline Phosphatase 38 L Total Creatine Kinase 77 Troponin I 0.055 H* Total Protein 7.1 Albumin 2.7 L Globulin 4.4 H Albumin/Globulin Ratio 0.6 L TSH 1.560 Urine Color Urine Appearance Urine pH Ur Specific [place] Urine Protein Urine Glucose (UA) Urine Ketones Urine Blood Urine Nitrite Urine Bilirubin Urine Urobilinogen Ur Leukocyte Esterase Urine WBC (Auto) Urine RBC (Auto) U Hyaline Cast (Auto) U Epithel Cells (Auto) Urine Bacteria (Auto) Triple Phos Crystals 06/22/18 06/22/18 06/22/18 20:05 20:52 21:58 WBC RBC Hgb Hct MCV MCH MCHC RDW Std Deviation RDW Coeff of Abdulkadir Plt Count MPV Immature Gran % (Auto) Neut % (Auto) Lymph % (Auto) [place] % (Auto) Eos % (Auto) Baso % (Auto) Immature Gran # (Auto) Neut # (Auto) Lymph # (Auto) [place] # (Auto) Eos # (Auto) Baso # (Auto) Echinocytes Sodium Potassium Chloride Carbon Dioxide Anion Gap BUN Creatinine Est Cr Clr Drug Dosing Est GFR ( Amer) Est GFR (Non-Af Amer) BUN/Creatinine Ratio Glucose POC Glucose 82 53 L* Estimat Average Glucose Hemoglobin A1c Calcium Magnesium Total Bilirubin AST ALT Alkaline Phosphatase Total Creatine Kinase Troponin I Total Protein Albumin Globulin Albumin/Globulin Ratio TSH Urine Color Yellow Urine Appearance Cloudy H Urine pH >= 9.0 H Ur Specific [place] 1.018 Urine Protein 1+ H Urine Glucose (UA) Negative Urine Ketones Negative Urine Blood Negative Urine Nitrite Positive H Urine Bilirubin Negative Urine Urobilinogen Negative Ur Leukocyte Esterase 2+ H Urine WBC (Auto) >30 H Urine RBC (Auto) 0-4 U Hyaline Cast (Auto) 1-5 U Epithel Cells (Auto) 10-20 H Urine Bacteria (Auto) 4+ H Triple Phos Crystals Present H 06/22/18 06/22/18 06/23/18 22:00 22:32 04:05 WBC RBC Hgb Hct MCV MCH MCHC RDW Std Deviation RDW Coeff of Abdulkadir Plt Count MPV Immature Gran % (Auto) Neut % (Auto) Lymph % (Auto) [place] % (Auto) Eos % (Auto) Baso % (Auto) Immature Gran # (Auto) Neut # (Auto) Lymph # (Auto) [place] # (Auto) Eos # (Auto) Baso # (Auto) Echinocytes Sodium 140 Potassium 4.5 Chloride 112 H Carbon Dioxide 22 Anion Gap 6.0 BUN 49 H Creatinine 2.31 H Est Cr Clr Drug Dosing 14.8 Est GFR ( Amer) 22.1 Est GFR (Non-Af Amer) 19.1 BUN/Creatinine Ratio 21.0 H Glucose 87 POC Glucose 59 L* 187 H Estimat Average Glucose Hemoglobin A1c Calcium 7.8 L Magnesium Total Bilirubin AST ALT Alkaline Phosphatase Total Creatine Kinase Troponin I 0.090 H* Total Protein Albumin Globulin Albumin/Globulin Ratio TSH Urine Color Urine Appearance Urine pH Ur Specific [place] Urine Protein Urine Glucose (UA) Urine Ketones Urine Blood Urine Nitrite Urine Bilirubin Urine Urobilinogen Ur Leukocyte Esterase Urine WBC (Auto) Urine RBC (Auto) U Hyaline Cast (Auto) U Epithel Cells (Auto) Urine Bacteria (Auto) Triple Phos Crystals 06/23/18 06/23/18 06/23/18 04:05 04:05 07:33 WBC 8.75 RBC 3.84 L Hgb 11.0 L Hct 33.4 L MCV 87.0 MCH 28.6 MCHC 32.9 RDW Std Deviation 43.0 RDW Coeff of Abdulkadir 13.5 Plt Count 218 MPV 10.2 Immature Gran % (Auto) 0.3 Neut % (Auto) 48.9 Lymph % (Auto) 36.3 [place] % (Auto) 12.9 Eos % (Auto) 1.5 Baso % (Auto) 0.1 Immature Gran # (Auto) 0.03 H Neut # (Auto) 4.27 Lymph # (Auto) 3.18 [place] # (Auto) 1.13 H Eos # (Auto) 0.13 Baso # (Auto) 0.01 Echinocytes Sodium Potassium Chloride Carbon Dioxide Anion Gap BUN Creatinine Est Cr Clr Drug Dosing Est GFR ( Amer) Est GFR (Non-Af Amer) BUN/Creatinine Ratio Glucose POC Glucose 81 Estimat Average Glucose 143 Hemoglobin A1c 6.6 H Calcium Magnesium Total Bilirubin AST ALT Alkaline Phosphatase Total Creatine Kinase Troponin I Total Protein Albumin Globulin Albumin/Globulin Ratio TSH Urine Color Urine Appearance Urine pH Ur Specific [place] Urine Protein Urine Glucose (UA) Urine Ketones Urine Blood Urine Nitrite Urine Bilirubin Urine Urobilinogen Ur Leukocyte Esterase Urine WBC (Auto) Urine RBC (Auto) U Hyaline Cast (Auto) U Epithel Cells (Auto) Urine Bacteria (Auto) Triple Phos Crystals 06/23/18 09:49 WBC RBC Hgb Hct MCV MCH MCHC RDW Std Deviation RDW Coeff of Abdulkadir Plt Count MPV Immature Gran % (Auto) Neut % (Auto) Lymph % (Auto) [place] % (Auto) Eos % (Auto) Baso % (Auto) Immature Gran # (Auto) Neut # (Auto) Lymph # (Auto) [place] # (Auto) Eos # (Auto) Baso # (Auto) Echinocytes Sodium Potassium Chloride Carbon Dioxide Anion Gap BUN Creatinine Est Cr Clr Drug Dosing Est GFR ( Amer) Est GFR (Non-Af Amer) BUN/Creatinine Ratio Glucose POC Glucose Estimat Average Glucose Hemoglobin A1c Calcium Magnesium Total Bilirubin AST ALT Alkaline Phosphatase Total Creatine Kinase Troponin I 0.063 H* Total Protein Albumin Globulin Albumin/Globulin Ratio TSH Urine Color Urine Appearance Urine pH Ur Specific [place] Urine Protein Urine Glucose (UA) Urine Ketones Urine Blood Urine Nitrite Urine Bilirubin Urine Urobilinogen Ur Leukocyte Esterase Urine WBC (Auto) Urine RBC (Auto) U Hyaline Cast (Auto) U Epithel Cells (Auto) Urine Bacteria (Auto) Triple Phos Crystals Medications Administered Current Inpatient Medications Acetaminophen (Tylenol) 650 mg PO Q4H PRN PRN Reason: Pain or Fever Stop: 07/22/18 23:43 Last Admin: 06/23/18 03:19 Dose: 650 mg Al Hydrox/Mg Hydrox/Simethicone (Maalox) 15 ml PO Q4H PRN PRN Reason: Dyspepsia Stop: 07/22/18 23:43 Amlodipine Besylate (Norvasc) 7.5 mg PO DAILY [facility] Stop: 07/23/18 08:59 Last Admin: 06/23/18 07:48 Dose: 7.5 mg Atorvastatin Calcium (Lipitor) 20 mg PO QPM [facility] Stop: 07/23/18 20:59 Aztreonam (Aztreonam Consult Active) 1 ea N/A UD PRN PRN Reason: Consult Stop: 07/23/18 01:41 Bisacodyl (Dulcolax) 10 mg [place] DAILY PRN PRN Reason: Constipation Stop: 07/22/18 23:43 Dextrose (Dextrose 50%) 25 - 50 ml IV UD PRN; Protocol PRN Reason: Hypoglycemia Protocol Stop: 07/22/18 23:43 Docusate Sodium (Colace) 100 mg PO TID [facility] Stop: 07/23/18 08:59 Last Admin: 06/23/18 07:45 Dose: 100 mg Ferrous Sulfate (Feosol) 325 mg PO DAILY [facility] Stop: 07/23/18 08:59 Last Admin: 06/23/18 07:48 Dose: 325 mg Glucagon (Glucagen) 1 mg SQ UD PRN; Protocol PRN Reason: Hypoglycemia Protocol Stop: 07/22/18 23:43 Glucose (Glucose 40%) 15 - 30 gm PO UD PRN; Protocol PRN Reason: Hypoglycemia Protocol Stop: 07/22/18 23:43 Glucose (Dex4 Glucose) 4 - 8 tabs PO UD PRN; Protocol PRN Reason: Hypoglycemia Protocol Stop: 07/22/18 23:43 Sodium Chloride (Nss 1000ml) 1,000 mls @ 75 mls/hr IV .[id number] [facility] Stop: 07/22/18 23:43 Last Admin: 06/22/18 23:50 Dose: 75 mls/hr Aztreonam 1,000 mg/ Dextrose 105 mls @ 100 mls/hr IV Q8H [facility] Stop: 07/03/18 07:59 Last Admin: 06/23/18 07:43 Dose: 100 mls/hr Insulin Aspart (Novolog Flexpen) 0 units SC ACHS [facility] Stop: 07/23/18 07:29 Last Admin: 06/23/18 08:11 Dose: Not Given Insulin Glargine (Lantus Solostar Pen) 10 units SC QAM [facility] Stop: 07/23/18 08:59 Last Admin: 06/23/18 08:16 Dose: 10 units Isosorbide Mononitrate (Imdur Extended Rel) 60 mg PO DAILY [facility] Stop: 07/23/18 08:59 Last Admin: 06/23/18 07:47 Dose: 60 mg Magnesium Hydroxide (Milk Of Magnesia) 30 ml PO DAILY PRN PRN Reason: Constipation Stop: 07/22/18 23:43 Metoprolol Tartrate (Lopressor) 12.5 mg PO BID [facility] Stop: 07/23/18 08:59 Last Admin: 06/23/18 07:51 Dose: 12.5 mg Miscellaneous (Carbohydrates For Hypoglycemia) 15 - 30 gm PO UD PRN PRN Reason: Hypoglycemia Treatment Stop: 07/22/18 23:43 Nitroglycerin (Nitrostat) 0.4 mg SL UD PRN PRN Reason: Chest Pain Stop: 07/22/18 23:43 Ondansetron HCl (Zofran) 4 mg IV Q6H PRN PRN Reason: Nausea Stop: 07/22/18 23:43 Oxycodone HCl (Roxicodone Immediate Rel) 5 mg PO QID [facility] Stop: 07/07/18 08:59 Last Admin: 06/23/18 08:50 Dose: 5 mg Pantoprazole Sodium (Protonix) 40 mg PO DAILY [facility] Stop: 07/23/18 08:59 Last Admin: 06/23/18 07:44 Dose: 40 mg Polyethylene Glycol (Miralax Powder Packet) 17 gm PO DAILY [facility] Stop: 07/23/18 08:59 Last Admin: 06/23/18 07:50 Dose: 17 gm Senna/Docusate Sodium (Senokot S) 1 tab PO QPM [facility] Stop: 07/23/18 20:59 Sertraline HCl (Zoloft) 100 mg PO QAM [facility] Stop: 07/23/18 08:59 Last Admin: 06/23/18 07:45 Dose: 100 mg Sodium Biphosphate/Sodium Phosphate (Fleet Enema) 132 ml [place] DAILY PRN PRN Reason: Constipation Stop: 07/22/18 23:43 _ (1) UTI (urinary tract infection) Encounter type: Hematuria presence: without hematuria Indwelling urinary catheter type: Urinary tract infection type: site unspecified Qualified Code( s): N39.0 - Urinary tract infection, site not specified
[2018-06-23] MEDS: SODIUM CHLORIDE 0.9% 1000ML 1,000 ML IV SCH ×2 (11:49→22:02)
[2018-06-23] MEDS: AZTREONAM 500 MG in DEXTROSE 5% 100 ML IV SCH ×2 (15:40→23:35)
[2018-06-23] MEDS: DOCUSATE SODIUM/SENNA 50/8.6MG TAB PO SCH (20:56)
[2018-06-23] MEDS: ATORVASTATIN 20 MG TAB PO SCH (20:57)
[2018-06-24] MEDS: METOPROLOL TARTRATE 25 MG TAB PO SCH ×2 (07:43→21:35)
[2018-06-24] MEDS: ATORVASTATIN 20 MG TAB PO SCH (07:44)
[2018-06-24] MEDS: POLYETHYLENE (MIRALAX) 17 GM PACK PO SCH (07:44)
[2018-06-24] MEDS: FERROUS SULFATE 325 MG TAB PO SCH (07:44)
[2018-06-24] MEDS: DOCUSATE SODIUM/SENNA 50/8.6MG TAB PO SCH (07:45)
[2018-06-24] MEDS: SERTRALINE HCL 100 MG TABLET PO SCH (07:45)
[2018-06-24] MEDS: AMLODIPINE BESYLATE 5 MG TAB PO SCH (07:45)
[2018-06-24] MEDS: DOCUSATE SODIUM 100 MG CAP PO SCH ×3 (07:46→21:35)
[2018-06-24] MEDS: PANTOprazole 40 MG TAB PO SCH (07:47)
[2018-06-24] MEDS: ISOSORBIDE MONO EXTENDED REL 60 MG TABCR PO SCH (07:47)
[2018-06-24 09:04] LABS: BUN Creatinine Ratio 17.2 (10-20); Calcium 8.1 mg/dl (8.5-10.1); Creatinine Clr Calc Pharmacy 16.3 ml/min; Est GFR (African American) 24.8; Est GFR (Non-African American) 21.4; Potassium 4.3 mmol/L (3.5-5.1)
[2018-06-24] MEDS: AZTREONAM 500 MG in DEXTROSE 5% 100 ML IV SCH (09:11)
[2018-06-24] MEDS: INSULIN ASPART 100 UNITS/ML 3 ML PEN SC SCH ×4 (09:16→21:35)
[2018-06-24] MEDS: INSULIN GLARGINE SOLOSTAR 100 UNITS/ML 3 ML PEN SC SCH ×3 (09:17→09:19)
[2018-06-24] MEDS: OXYCODONE HCL IR 5 MG TAB (IMMEDIATE RELEASE) PO SCH ×4 (09:22→21:35)
--- NOTE | 2018-06-24 10:54 | Hospitalist Progress Note ---
Date of Service June 24, 2018 Assessment & Plan (1) UTI (urinary tract infection): UA with 1+ protein, nitrite +, 2+ leuk, >30 WBC, 4+ bacteria, triple phosphate crystal outpatient urine culture with logan-sensitive E coli but she was not doing well on Bactrim perhaps Bactrim was causing her weakness, dehydration repeat urine culture this admission grew Proteus, was resistant to Bactrim which would explain why she was getting worse no sensitivities reported for Aztreonam which she has been on due to allergies our oral options are limited will change to Ertapenem for once a day dosing, 500mg daily follow for any allergic reaction, has a h/o hives with cephalosporins may need a midline or PICC tomorrow will need CM to look into home IV antibiotics would need a 7 day course (2) Hypoglycemia: resolved for two days at the time of admission Lantus was reduced from 25 units to 10 units would continue to use 10 units on discharge with novolog coverage continue diabetic diet (3) Elevated troponin: Patient asymptomatic, this represents demand mismatch ischemia rather than ACS no chest pain troponin all < 0.1 will transfer to medical floor (4) MATTHEW (acute kidney injury): Cr up to 2.5 on admission, down to 2.1 today baseline is 1.9, repeat BMP tomorrow eating and drinking well, stop fluids 06/24 (5) Dehydration: MATTHEW on CKD stage III Elevated creatinine 2.56 on admission, up from baseline 1.9. Elevated BUN: creatinine ratio on admission. -IVF NSS @75cc/hr - Cr down to 2.1, continue to monitor, repeat tomorrow (6) Weakness: Possibly contributor to by hypoglycemia versus dehydration versus deconditioning -Address issues as above -PT/OT pending (7) DM type 2 causing CKD stage 3: -Hold home regimen for now, alterations upon discharge as warranted -Lantus reduced to 10U qAM, with hold parameters if BSG<110 -ISS with BSG checks q4h (8) H/O: GI bleed: Hemoglobin stable. -Continue home iron supplementation in addition to bowel regimen. -Trend CBC (9) Lumbosacral radiculopathy at L5: -Continue home Tylenol and oxycodone, in addition to bowel regimen. (10) Depression: -Continue sertraline (11) CAD (coronary artery disease): -Continue amlodipine, metoprolol, ISMN, atorvastatin (12) PVD (peripheral vascular disease): As above (13) H/O: stroke: As above (14) HLD (hyperlipidemia): As above (15) HTN (hypertension): As above (16) DVT prophylaxis: plan: continue Ertapenem look into home IV antibiotics, need 7 day course will need to get midline/PICC tomorrow discuss with CM Subjective patient OOB to chair today, feeding herself, feeling better labs reviewed, Cr trending down to 2.1, BUN 36 reviewed micro results, urine culture grew Proteus, resistant to Bactrim this would explain why she continued to get worse will place on Ertapenem, would need once a day dosing likely need a midline or PICC for a 7 day course at home will need CM to see if she can get home IV antibiotics Review of Systems All systems reviewed & are unremarkable except as noted in HPI & below Constitutional: + fatigue and + weakness Physical Exam 2 Vital Signs (Past 24 Hours): Last Vital Signs Temp 36.9 C 06/24/18 07:27 Pulse 54 L 06/24/18 07:27 Resp 16 06/24/18 07:27 BP 170/63 H 06/24/18 07:27 Pulse Ox 92 06/24/18 07:27 Constitutional: WD/WN, vitals as above Eyes: PERRL, conjunctivae normal, anicteric sclerae ENMT: external ear and nose normal, oropharynx normal Neck: trachea midline, no thyromegaly Respiratory: normal respiratory effort, lungs clear to auscultation Cardiovascular: RRR, no murmur, no edema Gastrointestinal (Abdomen): normal bowel sounds, soft, nontender, no hepatosplenomegaly Musculoskeletal: Head/Neck/Chest: normocephalic, head atraumatic and neck supple Extremities: + abnormal strength (generalized weakness) Skin: no rashes, warm and dry Neurologic: patellar DTR's 2+ bilat, sensation intact and PERRL, EOMI, accommodation nl, no face palsy, no dysarthria Psychiatric: A+Ox3, euthymic affect Lymphatic: no cervical or axillary lymphadenopathy Results & Data Laboratory Results Laboratory Results - last 24 hr 06/23/18 06/23/18 06/24/18 11:30 16:43 05:19 Sodium Potassium Chloride Carbon Dioxide Anion Gap BUN Creatinine Est Cr Clr Drug Dosing Est GFR ( Amer) Est GFR (Non-Af Amer) BUN/Creatinine Ratio Glucose POC Glucose 117 H 159 H 89 Calcium 06/24/18 06/24/18 07:38 08:29 Sodium 141 Potassium 4.3 Chloride 113 H Carbon Dioxide 19 L Anion Gap 10.0 BUN 36 H Creatinine 2.10 H Est Cr Clr Drug Dosing 16.3 Est GFR ( Amer) 24.8 Est GFR (Non-Af Amer) 21.4 BUN/Creatinine Ratio 17.2 Glucose 84 POC Glucose 85 Calcium 8.1 L Medications Administered Current Inpatient Medications Acetaminophen (Tylenol) 650 mg PO Q4H PRN PRN Reason: Pain or Fever Stop: 07/22/18 23:43 Last Admin: 06/23/18 03:19 Dose: 650 mg Al Hydrox/Mg Hydrox/Simethicone (Maalox) 15 ml PO Q4H PRN PRN Reason: Dyspepsia Stop: 07/22/18 23:43 Amlodipine Besylate (Norvasc) 7.5 mg PO DAILY [facility] Stop: 07/23/18 08:59 Last Admin: 06/24/18 07:45 Dose: 7.5 mg Atorvastatin Calcium (Lipitor) 20 mg PO QPM [facility] Stop: 07/23/18 20:59 Last Admin: 06/24/18 07:44 Dose: 20 mg Aztreonam (Aztreonam Consult Active) 1 ea N/A UD PRN PRN Reason: Consult Stop: 07/23/18 01:41 Bisacodyl (Dulcolax) 10 mg [place] DAILY PRN PRN Reason: Constipation Stop: 07/22/18 23:43 Dextrose (Dextrose 50%) 25 - 50 ml IV UD PRN; Protocol PRN Reason: Hypoglycemia Protocol Stop: 07/22/18 23:43 Docusate Sodium (Colace) 100 mg PO TID [facility] Stop: 07/23/18 08:59 Last Admin: 06/24/18 07:46 Dose: 100 mg Ferrous Sulfate (Feosol) 325 mg PO DAILY [facility] Stop: 07/23/18 08:59 Last Admin: 06/24/18 07:44 Dose: 325 mg Glucagon (Glucagen) 1 mg SQ UD PRN; Protocol PRN Reason: Hypoglycemia Protocol Stop: 07/22/18 23:43 Glucose (Glucose 40%) 15 - 30 gm PO UD PRN; Protocol PRN Reason: Hypoglycemia Protocol Stop: 07/22/18 23:43 Glucose (Dex4 Glucose) 4 - 8 tabs PO UD PRN; Protocol PRN Reason: Hypoglycemia Protocol Stop: 07/22/18 23:43 Sodium Chloride (Nss 1000ml) 1,000 mls @ 75 mls/hr IV .[id number] [facility] Stop: 07/22/18 23:43 Last Admin: 06/23/18 22:02 Dose: 75 mls/hr Ertapenem 500 mg/ Sodium (Chloride) 55 mls @ 100 mls/hr IV Q24H [facility] Stop: 07/04/18 10:59 Insulin Aspart (Novolog Flexpen) 0 units SC ACHS [facility] Stop: 07/23/18 07:29 Last Admin: 06/24/18 09:16 Dose: Not Given Insulin Glargine (Lantus Solostar Pen) 10 units SC QAM [facility] Stop: 07/23/18 08:59 Last Admin: 06/24/18 09:19 Dose: Not Given Isosorbide Mononitrate (Imdur Extended Rel) 60 mg PO DAILY [facility] Stop: 07/23/18 08:59 Last Admin: 06/24/18 07:47 Dose: 60 mg Magnesium Hydroxide (Milk Of Magnesia) 30 ml PO DAILY PRN PRN Reason: Constipation Stop: 07/22/18 23:43 Metoprolol Tartrate (Lopressor) 12.5 mg PO BID [facility] Stop: 07/23/18 08:59 Last Admin: 06/24/18 07:43 Dose: 12.5 mg Miscellaneous (Carbohydrates For Hypoglycemia) 15 - 30 gm PO UD PRN PRN Reason: Hypoglycemia Treatment Stop: 07/22/18 23:43 Nitroglycerin (Nitrostat) 0.4 mg SL UD PRN PRN Reason: Chest Pain Stop: 07/22/18 23:43 Ondansetron HCl (Zofran) 4 mg IV Q6H PRN PRN Reason: Nausea Stop: 07/22/18 23:43 Oxycodone HCl (Roxicodone Immediate Rel) 5 mg PO QID [facility] Stop: 07/07/18 08:59 Last Admin: 06/24/18 09:22 Dose: 5 mg Pantoprazole Sodium (Protonix) 40 mg PO DAILY [facility] Stop: 07/23/18 08:59 Last Admin: 06/24/18 07:47 Dose: 40 mg Polyethylene Glycol (Miralax Powder Packet) 17 gm PO DAILY [facility] Stop: 07/23/18 08:59 Last Admin: 06/24/18 07:44 Dose: 17 gm Senna/Docusate Sodium (Senokot S) 1 tab PO QPM [facility] Stop: 07/23/18 20:59 Last Admin: 06/24/18 07:45 Dose: 1 tab Sertraline HCl (Zoloft) 100 mg PO QAM [facility] Stop: 07/23/18 08:59 Last Admin: 06/24/18 07:45 Dose: 100 mg Sodium Biphosphate/Sodium Phosphate (Fleet Enema) 132 ml [place] DAILY PRN PRN Reason: Constipation Stop: 07/22/18 23:43 _ (1) UTI (urinary tract infection) Encounter type: Hematuria presence: without hematuria Indwelling urinary catheter type: Urinary tract infection type: site unspecified Qualified Code( s): N39.0 - Urinary tract infection, site not specified
[2018-06-24] MEDS: ERTAPENEM SODIUM 500 MG in SODIUM CHLORIDE 0.9% 50 ML IV SCH (12:32)
[2018-06-25 05:59] LABS: Hematocrit (blood only) 35.4 % (37-47); Hemoglobin 11.3 g/dL (12.0-16.0); Mean Corpuscular Hgb Conc 31.9 g/dL (32-36); Mean Corpuscular Volume 88.9 fL (80-100); Mean Platelet Volume 9.9 fL (7.4-10.4); Platelet Count 228 K/uL (130-400); RDW Coefficient of Variation 13.5 % (11.5-14.5); RDW Standard Deviation 44.4 fL (36.4-46.3); Red Blood Count 3.98 M/uL (4.2-5.4); White Blood Count 9.63 K/uL (4.8-10.8)
[2018-06-25 06:35] LABS: BUN Creatinine Ratio 16.6 (10-20); Calcium 8.2 mg/dl (8.5-10.1); Creatinine Clr Calc Pharmacy 17.5 ml/min; Est GFR (African American) 26.9; Est GFR (Non-African American) 23.2; Potassium 4.4 mmol/L (3.5-5.1)
[2018-06-25] MEDS: SERTRALINE HCL 100 MG TABLET PO SCH (08:18)
[2018-06-25] MEDS: OXYCODONE HCL IR 5 MG TAB (IMMEDIATE RELEASE) PO SCH ×4 (08:18→21:31)
[2018-06-25] MEDS: METOPROLOL TARTRATE 25 MG TAB PO SCH ×2 (08:18→21:31)
[2018-06-25] MEDS: FERROUS SULFATE 325 MG TAB PO SCH (08:19)
[2018-06-25] MEDS: PANTOprazole 40 MG TAB PO SCH (08:19)
[2018-06-25] MEDS: AMLODIPINE BESYLATE 5 MG TAB PO SCH (08:19)
[2018-06-25] MEDS: ISOSORBIDE MONO EXTENDED REL 60 MG TABCR PO SCH (08:19)
[2018-06-25] MEDS: POLYETHYLENE (MIRALAX) 17 GM PACK PO SCH (08:21)
[2018-06-25] MEDS: DOCUSATE SODIUM 100 MG CAP PO SCH ×3 (08:21→21:39)
[2018-06-25] MEDS: INSULIN GLARGINE SOLOSTAR 100 UNITS/ML 3 ML PEN SC SCH (08:30)
[2018-06-25] MEDS: INSULIN ASPART 100 UNITS/ML 3 ML PEN SC SCH ×4 (08:30→21:31)
[2018-06-25] MEDS: ERTAPENEM SODIUM 500 MG in SODIUM CHLORIDE 0.9% 50 ML IV SCH (13:04)
--- NOTE | 2018-06-25 18:33 | Hospitalist Progress Note ---
Date of Service June 25, 2018 Assessment & Plan (1) UTI (urinary tract infection): UA with 1+ protein, nitrite +, 2+ leuk, >30 WBC, 4+ bacteria, triple phosphate crystal Outpatient urine culture with logan-sensitive E coli. During this hospital stay, repeat urine culture grew Proteus, was resistant to Bactrim which would explain why she was getting worse. Due to allergies our oral options are limited D/W pharmacy, will not use amox or ampicllin due to high likelihood of cross allergy. Will continue on Ertapenem for once a day dosing, 500mg daily Patient appears to be tolerating this medicine (06/25) Will obtain U/S guided peripheral line which should be good for this short course.. would need a 7 day course. Once set up has been completed with piano case maker, will discharge. (2) Hypoglycemia: resolved at the time of admission Lantus was reduced from 25 units to 10 units would continue to use 10 units on discharge with novolog coverage continue diabetic diet (3) Elevated troponin: Patient asymptomatic, this represents demand mismatch ischemia rather than ACS no chest pain troponin all < 0.1 Patient is now residing in Med/Surg (4) MATTHEW (acute kidney injury): Cr up to 2.5 on admission, down to 1.96 today (06/25) baseline is 1.9. This appears to have resolved. (5) Dehydration: MATTHEW on CKD stage III Elevated creatinine 2.56 on admission, up from baseline 1.9. Elevated BUN: creatinine ratio on admission. Appears to be back to her baseline as noted above. (6) Weakness: Possibly contributor to by hypoglycemia versus dehydration versus deconditioning -Address issues as above -PT/OT pending (7) DM type 2 causing CKD stage 3: -Hold home regimen for now, alterations upon discharge as warranted -Lantus reduced to 10U qAM, with hold parameters if BSG<110 -ISS with BSG checks q4h (8) H/O: GI bleed: Hemoglobin stable. -Continue home iron supplementation in addition to bowel regimen. -Trend CBC (9) Lumbosacral radiculopathy at L5: -Continue home Tylenol and oxycodone, in addition to bowel regimen. (10) Depression: -Continue sertraline (11) CAD (coronary artery disease): -Continue amlodipine, metoprolol, ISMN, atorvastatin (12) PVD (peripheral vascular disease): As above (13) H/O: stroke: As above (14) HLD (hyperlipidemia): As above (15) HTN (hypertension): As above (16) Metabolic encephalopathy: Patient appeared confused on admission. With documented UTI. It is probable that patient suffrered from metabolic encephalopathy. will continue to [facility]. Present on Admission?: Yes (17) DVT prophylaxis: plan: continue Ertapenem look into home IV antibiotics, need 7 day course Subjective Patient is in chair today. Patient reports feeling better. Upon further questioning, she does not recall exactly why she is in the hospital. She does states however, that she is less weaker today. She denies any nausea, vomiting, diarrhea. Constitutional: + fatigue and + weakness Gastrointestinal: + nausea and + problem reported (poor appetite) Physical Exam 2 Vital Signs (Past 24 Hours): Last Vital Signs Temp 36.7 C 06/25/18 15:05 Pulse 53 L 06/25/18 15:05 Resp 20 06/25/18 15:05 BP 161/81 H 06/25/18 15:05 Pulse Ox 93 06/25/18 15:05 Physical Exam: Constitutional: WD/WN, vitals as above Eyes: PERRL, conjunctivae normal, anicteric sclerae ENMT: external ear and nose normal, oropharynx normal Neck: trachea midline, no thyromegaly Respiratory: normal respiratory effort, lungs clear to auscultation Cardiovascular: RRR, no murmur, no edema Gastrointestinal (Abdomen): normal bowel sounds, soft, nontender, no hepatosplenomegaly Musculoskeletal: Head/Neck/Chest: normocephalic, head atraumatic and neck supple Extremities: + abnormal strength (generalized weakness) Skin: no rashes, warm and dry Neurologic: patellar DTR's 2+ bilat, sensation intact and PERRL, EOMI, accommodation nl, no face palsy, no dysarthria Psychiatric: A+Ox3, euthymic affect Lymphatic: no cervical or axillary lymphadenopathy _ (1) UTI (urinary tract infection) Encounter type: Hematuria presence: without hematuria Indwelling urinary catheter type: Urinary tract infection type: site unspecified Qualified Code( s): N39.0 - Urinary tract infection, site not specified
[2018-06-25] MEDS: ATORVASTATIN 20 MG TAB PO SCH (21:30)
[2018-06-25] MEDS: DOCUSATE SODIUM/SENNA 50/8.6MG TAB PO SCH (21:39)
[2018-06-26 07:32] LABS: Basophils # (auto) 0.02 K/uL (0-0.2); Basophils % (auto) 0.2 %; Eosinophils # (auto) 0.39 K/uL (0-0.5); Eosinophils % (auto) 4.7 %; Hematocrit (blood only) 33.2 % (37-47); Hemoglobin 10.8 g/dL (12.0-16.0); Immature Granulocytes # (auto) 0.02 K/uL (0.00-0.02); Immature Granulocytes % (auto) 0.2 %; Lymphocytes # (auto) 2.75 K/uL (1.2-3.4); Lymphocytes % (auto) 33.2 %; Mean Corpuscular Hgb Conc 32.5 g/dL (32-36); Mean Corpuscular Volume 88.5 fL (80-100); Mean Platelet Volume 9.7 fL (7.4-10.4); Monocytes # (auto) 0.82 K/uL (0.11-0.59); Monocytes % (auto) 9.9 %; Neutrophils # (auto) 4.29 K/uL (1.4-6.5); Neutrophils % (auto) 51.8 %; Platelet Count 204 K/uL (130-400); RDW Coefficient of Variation 13.4 % (11.5-14.5); RDW Standard Deviation 43.5 fL (36.4-46.3); Red Blood Count 3.75 M/uL (4.2-5.4); White Blood Count 8.29 K/uL (4.8-10.8)
[2018-06-26 08:00] LABS: Calcium 8.1 mg/dl (8.5-10.1); Creatinine Clr Calc Pharmacy 18.4 ml/min; Est GFR (African American) 28.7; Est GFR (Non-African American) 24.8; Potassium 4.1 mmol/L (3.5-5.1)
[2018-06-26] MEDS: ISOSORBIDE MONO EXTENDED REL 60 MG TABCR PO SCH (08:11)
[2018-06-26] MEDS: METOPROLOL TARTRATE 25 MG TAB PO SCH ×2 (08:11→20:55)
[2018-06-26] MEDS: AMLODIPINE BESYLATE 5 MG TAB PO SCH (08:11)
[2018-06-26] MEDS: SERTRALINE HCL 100 MG TABLET PO SCH (08:12)
[2018-06-26] MEDS: FERROUS SULFATE 325 MG TAB PO SCH (08:13)
[2018-06-26] MEDS: PANTOprazole 40 MG TAB PO SCH (08:13)
[2018-06-26] MEDS: INSULIN GLARGINE SOLOSTAR 100 UNITS/ML 3 ML PEN SC SCH (08:16)
[2018-06-26] MEDS: DOCUSATE SODIUM 100 MG CAP PO SCH ×3 (08:16→20:54)
[2018-06-26] MEDS: POLYETHYLENE (MIRALAX) 17 GM PACK PO SCH (08:23)
[2018-06-26] MEDS: OXYCODONE HCL IR 5 MG TAB (IMMEDIATE RELEASE) PO SCH ×4 (08:23→20:54)
[2018-06-26] MEDS: INSULIN ASPART 100 UNITS/ML 3 ML PEN SC SCH ×4 (09:00→20:26)
[2018-06-26] MEDS: ACETAMINOPHEN 325 MG TAB PO PRN (10:54)
[2018-06-26] MEDS: ERTAPENEM SODIUM 500 MG in SODIUM CHLORIDE 0.9% 50 ML IV SCH (12:23)
[2018-06-26] MEDS: DOCUSATE SODIUM/SENNA 50/8.6MG TAB PO SCH (20:54)
[2018-06-26] MEDS: ATORVASTATIN 20 MG TAB PO SCH (20:54)
--- NOTE | 2018-06-26 21:36 | Hospitalist Progress Note ---
Date of Service June 26, 2018 Assessment & Plan (1) UTI (urinary tract infection): UA with 1+ protein, nitrite +, 2+ leuk, >30 WBC, 4+ bacteria, triple phosphate crystal Outpatient urine culture with logan-sensitive E coli. During this hospital stay, repeat urine culture grew Proteus, was resistant to Bactrim which would explain why she was getting worse. Due to allergies our oral options are limited D/W pharmacy, will not use amox or ampicllin due to high likelihood of cross allergy. Will continue on Ertapenem for once a day dosing, 500mg daily Patient appears to be tolerating this medicine (06/26) U/S guided peripheral line was obtained.. would need a 7 day course of this medicine Due to holiday, difficult to coordinate discharge. (2) Hypoglycemia: resolved at the time of admission Lantus was reduced from 25 units to 10 units would continue to use 10 units on discharge with novolog coverage continue diabetic diet (3) Elevated troponin: Patient asymptomatic, this represents demand mismatch ischemia rather than ACS no chest pain troponin all < 0.1 Patient is now residing in Med/Surg (4) MATTHEW (acute kidney injury): Cr up to 2.5 on admission, down to 1.96 today (06/25) baseline is 1.9. This appears to have resolved. (5) Dehydration: MATTHEW on CKD stage III Elevated creatinine 2.56 on admission, up from baseline 1.9. Elevated BUN: creatinine ratio on admission. Appears to be back to her baseline as noted above. (6) Weakness: Possibly contributor to by hypoglycemia versus dehydration versus deconditioning -Address issues as above -PT/OT seeing patient. Patient is at her baseline (7) DM type 2 causing CKD stage 3: -Hold home regimen for now, alterations upon discharge as warranted -Lantus reduced to 10U qAM, with hold parameters if BSG<110 -ISS with BSG checks q4h (8) H/O: GI bleed: Hemoglobin stable. -Continue home iron supplementation in addition to bowel regimen. -Trend CBC (9) Lumbosacral radiculopathy at L5: -Continue home Tylenol and oxycodone, in addition to bowel regimen. (10) Depression: -Continue sertraline (11) CAD (coronary artery disease): -Continue amlodipine, metoprolol, ISMN, atorvastatin (12) PVD (peripheral vascular disease): As above (13) H/O: stroke: As above (14) HLD (hyperlipidemia): As above (15) HTN (hypertension): As above (16) Metabolic encephalopathy: Patient appeared confused on admission. With documented UTI. It is probable that patient suffrered from metabolic encephalopathy. will continue to [facility]. (17) DVT prophylaxis: plan: continue Ertapenem look into home IV antibiotics, need 7 day course of this medicine. spent 35 minutes in management with patient. Included discussing with patient, family, telephonic case manager. Subjective Patient reports feeling better. Patient knows she is in the hospital. She has difficulty with the dates though. I called daughter after encounter and she states this is her moms baseline mentally. Patient is not having any fever or chills. Constitutional: + fatigue and + weakness Gastrointestinal: + nausea and + problem reported (poor appetite) Physical Exam 2 Vital Signs (Past 24 Hours): Last Vital Signs Temp 36.6 C 06/26/18 15:59 Pulse 53 L 06/26/18 15:59 Resp 20 06/26/18 15:59 BP 148/54 H 06/26/18 15:59 Pulse Ox 90 06/26/18 15:59 Physical Exam: Constitutional: WD/WN, vitals as above Eyes: PERRL, conjunctivae normal, anicteric sclerae ENMT: external ear and nose normal, oropharynx normal Neck: trachea midline, no thyromegaly Respiratory: normal respiratory effort, lungs clear to auscultation Cardiovascular: RRR, no murmur, no edema Gastrointestinal (Abdomen): normal bowel sounds, soft, nontender, no hepatosplenomegaly Musculoskeletal: Head/Neck/Chest: normocephalic, head atraumatic and neck supple Extremities: + abnormal strength (generalized weakness) Skin: no rashes, warm and dry Neurologic: patellar DTR's 2+ bilat, sensation intact and PERRL, EOMI, accommodation nl, no face palsy, no dysarthria Psychiatric: A+Ox3, euthymic affect Lymphatic: no cervical or axillary lymphadenopathy _ (1) UTI (urinary tract infection) Encounter type: Hematuria presence: without hematuria Indwelling urinary catheter type: Urinary tract infection type: site unspecified Qualified Code( s): N39.0 - Urinary tract infection, site not specified
[2018-06-27] MEDS: ISOSORBIDE MONO EXTENDED REL 60 MG TABCR PO SCH (08:53)
[2018-06-27] MEDS: METOPROLOL TARTRATE 25 MG TAB PO SCH (08:53)
[2018-06-27] MEDS: FERROUS SULFATE 325 MG TAB PO SCH (08:53)
[2018-06-27] MEDS: AMLODIPINE BESYLATE 5 MG TAB PO SCH (08:54)
[2018-06-27] MEDS: PANTOprazole 40 MG TAB PO SCH (08:55)
[2018-06-27] MEDS: OXYCODONE HCL IR 5 MG TAB (IMMEDIATE RELEASE) PO SCH ×2 (08:55→12:57)
[2018-06-27] MEDS: DOCUSATE SODIUM 100 MG CAP PO SCH ×2 (08:56→13:00)
[2018-06-27] MEDS: POLYETHYLENE (MIRALAX) 17 GM PACK PO SCH (08:56)
[2018-06-27] MEDS: SERTRALINE HCL 100 MG TABLET PO SCH (08:56)
[2018-06-27] MEDS: INSULIN GLARGINE SOLOSTAR 100 UNITS/ML 3 ML PEN SC SCH (08:57)
[2018-06-27] MEDS: INSULIN ASPART 100 UNITS/ML 3 ML PEN SC SCH ×2 (08:59→12:57)
[2018-06-27] MEDS: ERTAPENEM SODIUM 500 MG in SODIUM CHLORIDE 0.9% 50 ML IV SCH (11:51)
--- NOTE | 2018-06-28 08:06 | Discharge Summary ---
Date of Service June 27, 2018 Admission HPI Per Admitting Provider 82 yo F with pMHx of CAD s/p CABG, CVS, PVD, DMII, h/o GI bleed, HTN, HLD presented to the ED today after episode of chills, shakes, diaphoresis. Patient is a resident of [facility] and has been treated with Bactrim for pansensitive E. coli UTI diagnosed on 06/14/18. However for the 2 days, she has been feeling increasingly unwell. She describes feeling like she has the flu with significant fatigue and weakness in addition to chills and sweats. EMS was called when she had shakes for approximately 10 minutes today. EMS states that the patient was sweaty, shaking, and clenching upon their arrival. A BSG check at that time revealed sugar in the 40s, for which 1 amp of D50 was given. Patient denies headaches, vision changes, chest pain, shortness of breath. She does describe intermittent belly pain and nausea which started earlier today. She is incontinent of urine at baseline and wears adult diapers consistently. She denies changes in bowel movements. Her granddaughter notes that the patient has mentioned she has been having low blood sugars for the past 3 days. Patient is unaware of any recent diabetic medication changes that have been made. She admits to poor PO intake and poor hydration over the last few days due to feeling unwell. In the ED, patient was noted to continue to have low blood sugars on 2 separate occasions. Each time the patient was tremulous and diaphoretic. BSG improved with an amp of D50 each time. She was also given IVF NSS to improve hydration. UA shows evidence of infection, and the patient was started on aztreonam. Principal Diagnosis UTI Discharge Exam Constitutional: WD/WN, vitals as above Eyes: PERRL, conjunctivae normal, anicteric sclerae ENMT: external ear and nose normal, oropharynx normal Neck: trachea midline, no thyromegaly Respiratory: normal respiratory effort, lungs clear to auscultation Cardiovascular: RRR, no murmur, no edema Gastrointestinal (Abdomen): normal bowel sounds, soft, nontender, no hepatosplenomegaly Musculoskeletal: Head/Neck/Chest: normocephalic, head atraumatic and neck supple Extremities: + abnormal strength (generalized weakness) Skin: no rashes, warm and dry Neurologic: patellar DTR's 2+ bilat, sensation intact and PERRL, EOMI, accommodation nl, no face palsy, no dysarthria Psychiatric: A+Ox3, euthymic affect Lymphatic: no cervical or axillary lymphadenopathy Discharge Data Allergies Allergy/AdvReac Type Severity Reaction Status Date / Time cephalexin Allergy Intermediate Hives Verified 04/05/18 12:20 propofol Allergy Mild RASH Verified 04/05/18 12:20 gabapentin AdvReac Intermediate vertigo Verified 04/05/18 12:20 levofloxacin AdvReac Mild nausea Verified 04/05/18 12:20 promethazine AdvReac Mild CONFUSION Verified 04/05/18 12:20 TATIANNA Inhibitors AdvReac Unknown Cough Verified 04/05/18 12:20 Consultations 06/22/18 21:14 ED Decision to Admit Stat 06/22/18 23:44 Consult Case Management - Discharge Planning Routine Ordered Studies 06/22/18 19:18 CT head/brain wo con Stat 06/25/18 14:05 US guide vascular access Routine Hospital Course (1) UTI (urinary tract infection): UA with 1+ protein, nitrite +, 2+ leuk, >30 WBC, 4+ bacteria, triple phosphate crystal Outpatient urine culture with logan-sensitive E coli. During this hospital stay, repeat urine culture grew Proteus, was resistant to Bactrim which would explain why she was getting worse. Due to allergies our oral options are limited D/W pharmacy, will not use amox or ampicllin due to high likelihood of cross allergy. Will continue on Ertapenem for once a day dosing, 500mg daily Patient appears to be tolerating this medicine (06/26) U/S guided peripheral line was obtained.. would need a 7 day course of this medicine Will continue medicine at discharge. Needs 3 more days of Ertapenem. (2) Hypoglycemia: resolved at the time of admission Lantus was reduced from 25 units to 10 units would continue to use 10 units on discharge with novolog coverage continue diabetic diet (3) Elevated troponin: Patient asymptomatic, this represents demand mismatch ischemia rather than ACS no chest pain troponin all < 0.1 Patient is now residing in Med/Surg (4) MATTHEW (acute kidney injury): Cr up to 2.5 on admission, down to 1.96 today (06/25) baseline is 1.9. This appears to have resolved. (5) Dehydration: MATTHEW on CKD stage III Elevated creatinine 2.56 on admission, up from baseline 1.9. Elevated BUN: creatinine ratio on admission. Appears to be back to her baseline as noted above. (6) Weakness: Possibly contributor to by hypoglycemia versus dehydration versus deconditioning -Address issues as above -PT/OT seeing patient. Patient is at her baseline (7) DM type 2 causing CKD stage 3: -Hold home regimen for now, alterations upon discharge as warranted -Lantus reduced to 10U qAM, with hold parameters if BSG<110 -ISS with BSG checks q4h (8) H/O: GI bleed: Hemoglobin stable. -Continue home iron supplementation in addition to bowel regimen. -Trend CBC (9) Lumbosacral radiculopathy at L5: -Continue home Tylenol and oxycodone, in addition to bowel regimen. (10) Depression: -Continue sertraline (11) CAD (coronary artery disease): -Continue amlodipine, metoprolol, ISMN, atorvastatin (12) PVD (peripheral vascular disease): As above (13) H/O: stroke: As above (14) HLD (hyperlipidemia): As above (15) HTN (hypertension): As above (16) Metabolic encephalopathy: Patient appeared confused on admission. With documented UTI. It is probable that patient suffrered from metabolic encephalopathy. [facility]. (17) DVT prophylaxis: plan: continue Ertapenem look into home IV antibiotics, need 7 day course of this medicine. . Total Time Total Time Spent Total Time Spent (In Minutes): 32 Total Time Includes: Examination of the Patient, Discharge Planning and Medication Reconciliation Discharge Plan Discharge Items Patient Disposition: Transfer [facility] Fac Reason For Visit: UTI,HYPOGLYCEMIA Discharge Diagnosis: UTI, hypoglycemia Condition: Fair Discharge Goals: Decrease discomfort Activity: Resume your previous activity Non-emergency contact: Primary Care Provider Call non-emergency contact if: you have any medication questions Diet: Carb Consistent or DM2 Addtl Provider Instructions: F/U with primary care provider in 1 week./ Stopped insulinas patient did not require insulin daily. May need to be titrated to oral medicine. Will defer to PCP. Prescriptions: New ertapenem 1 gram recon soln 500 mg IV DAILY Qty: 3 RF: 0 Continue atorvastatin 20 mg Tablet 20 mg PO QPM RF: 0 sertraline 100 mg Tablet 100 mg PO QAM RF: 0 amlodipine 5 mg Tablet 7.5 mg PO DAILY RF: 0 isosorbide mononitrate 60 mg Tablet Extended Release 24 Hr 60 mg PO DAILY RF: 0 magnesium hydroxide 400 mg/5 mL Suspension 30 ml PO DAILY PRN (Reason: Constipation) RF: 0 ascorbic acid (vitamin C) [Vitamin C] 250 mg Tablet 250 mg PO DAILY RF: 0 bisacodyl [Dulcolax (bisacodyl)] 10 mg Suppository 10 mg MN DAILY PRN (Reason: Constipation) RF: 0 pantoprazole 40 mg Tablet,Delayed Release (Dr/Ec) 40 mg PO DAILY RF: 0 ferrous sulfate 325 mg (65 mg iron) Tablet 325 mg PO DAILY RF: 0 sodium phosphates [Fleet Enema] 19-7 gram/118 mL Enema 118 ml MN DAILY PRN (Reason: Constipation) RF: 0 polyethylene glycol 3350 [Miralax] 17 gram/dose Powder 17 g PO DAILY RF: 0 docusate sodium 100 mg Tablet 100 mg PO TID RF: 0 oxycodone 5 mg Tablet 5 mg PO QID RF: 0 acetaminophen 325 mg Capsule 650 mg PO Q6H PRN (Reason: Fever Or Pain) RF: 0 cholecalciferol (vitamin D3) 2,000 unit Capsule 2,000 units PO DAILY RF: 0 ondansetron HCl 8 mg tablet 8 mg PO Q6H PRN (Reason: Nausea And Vomiting) RF: 0 sennosides-docusate sodium [Senokot-S] 8.6-50 mg Tablet 1 tab PO QPM RF: 0 insulin aspart U-100 100 unit/mL solution See Label Instructions .ROUTE .COMPLEX PRN (Reason: Elevated Blood Sugar) RF : 0 cholecalciferol (vitamin D3) [Vitamin D3] 1,000 unit Capsule 1,000 units PO DAILY RF: 0 metoprolol tartrate 25 mg tablet 12.5 mg PO BID RF: 0 Discontinued insulin aspart U-100 [Novolog U-100 Insulin aspart] 100 unit/mL solution 5 units subcut BID RF: 0 insulin detemir U-100 [Levemir U-100 Insulin] 100 unit/mL solution 25 units subcut QAM RF: 0 Stand-Alone Forms: [facility] Discharge Orders: Discharge Order (Routine); Ordered 06/27/18 Ordered By: Link Weiss Skilled Items Patient informed of condition?: Yes DNR: No Discharge Level of Care: Skilled Communicable Disease: No Discharge Prognosis: Improving Admission Data Admit Date/Time: 06/22/18 23:00 Attending Provider: Link Weiss Admit Provider: Gardenia Huff Primary Care Provider: Samy Weston Other Providers: Lorenzo Paulino Service: Telemetry Other Interventions: Discharge Summary Assessment (RN) Last Done: 06/27/18 14:28 DC Date/Time DO NOT enter until pt leaves facility: 06/27/18 15:10
== END 2018-06-27 15:10 | DRG 682 ==
LOC: ED 18:38 → SUATTDRO 23:00 → 2E 23:00 → 4E 06-23 12:54